=== PATIENT | male | born 1930 | race Caucasian/White ===

== ENCOUNTER 2018-03-21 20:20 | Inpatient (IN) | payer MEDICARE, MEDICAID ==
[~2018-03-21] VITALS: Ht 170.2 cm; Wt 60.0 kg
--- NOTE | 2018-03-21 21:43 | Emergency Room Report ---
History of Present Illness General Chief Complaint: Abnormal Labs Source: Medical Record, EMS Present Illness HPI Is an 87-year-old male with multiple medical problem. He is a DO NOT RESUSCITATE with selected care. He presents with chief complaint of fever and abnormal labs. White count was 22,000 at the long-term. Patient unable to give any history. Onset for last couple days. No nausea no vomiting. He does have some respiratory distress. No other complaint. Allergies: Coded Allergies: ASPIRIN (Verified Allergy, Unknown, 03/21/18) Patient History Past Medical History: see triage record, old chart reviewed Past Surgical History: other Pertinent Family History: none Social History: Denies: smoking Immunizations: other Reviewed Nursing Documentation: PMH: Agreed; PSxH: Agreed Nursing Documentation-PMH Past Medical History: No History, Except For Hx Cardiac Problems: Yes - afib Hx Hypertension: Yes Hx Diabetes: Yes - dm2 Hx Gastrointestinal Problems: Yes - gtube Review of Systems Constitutional: Reports: fever, malaise, weakness Eye: Denies: eye pain, blurred vision ENT: Denies: ear pain, nose congestion, throat swelling Respiratory: Reports: shortness of breath; Denies: cough Cardiovascular: Denies: chest pain, palpitations Gastrointestinal: Denies: abdominal pain, diarrhea, nausea, vomiting Musculoskeletal: Denies: back pain, joint pain Skin: Denies: rash Neurological: Denies: headache, numbness Endocrine: Denies: increased thirst, increased urine Hematologic/Lymphatic: Denies: easy bruising All Other Systems: negative except mentioned in HPI Physical Exam Vital Signs Date Time Temp Pulse Resp B/P (MAP) Pulse Ox O2 Delivery O2 Flow Rate FiO2 03/21/18 20:23 99.7 92 16 87/39 93 Nasal Cannula 2.0 99.7 vitals with fever, hypoxia, and hypotension Sp02 EP Interpretation: abnormal General Appearance: mild distress, lethargic, thin, Chronically Ill Head: normocephalic, atraumatic Eyes: bilateral eye PERRL, bilateral eye EOMI ENT: dry mucus membranes Neck: full range of motion, supple, no meningismus Respiratory: chest non-tender, respiratory distress, decreased breath sounds, crackles, rhonchi Cardiovascular #1: regular rate, rhythm, no murmur Gastrointestinal: normal bowel sounds, non tender, no mass, no organomegaly, no bruit, non-distended Genitourinary: other - Perez Musculoskeletal: back normal, normal range of motion Psychiatric: mood/affect normal Skin: warm/dry Procedures Critical Care Time Critical Care Time Critical care is mandated in this patient who presented with sepsis from pneumonia. Patient require my urgent intervention to attenuate the risks of metabolic collapse which may lead to cardiovascular collapse and . Critical care time is 35 minutes excluding any reportable procedure. Critical care time included evaluation, multiple reevaluation, looking at old charts, interpreting laboratory and diagnostic data, discussing case with patient and family and consultants, and charting. Medical Decision Making Diagnostic Impression: Primary Impression: Sepsis Qualified Codes: A41.9 - Sepsis, unspecified organism Additional Impressions: Healthcare-associated pneumonia ACS (acute coronary syndrome) ARF (acute renal failure) Qualified Codes: N17.9 - Acute kidney failure, unspecified Anemia Qualified Codes: D64.9 - Anemia, unspecified UTI (urinary tract infection) Qualified Codes: N30.00 - Acute cystitis without hematuria Proteinuria Qualified Codes: R80.9 - Proteinuria, unspecified ER Course Patient with sepsis from pneumonia. Antibiotics given. I will add vancomycin to cover for the PICC line. I discussed the case with Dr. Anthony who will admit. Lab Results Impression labs showed multiple abnormalities EKG Diagnostic Results Rate: normal Rhythm: NSR ST Segments: no acute changes Rhythm Strip Diag. Results Rhythm Strip Time: 21:41 EP Interpretation: yes Rate: 87 Rhythm: NSR, no PVC's, no ectopy Chest X-Ray Diagnostic Results Chest X-Ray Diagnostic Results : Chest X-Ray Ordered: Yes # of Views/Limited/Complete: 1 View Indication: Shortness of Breath EP Interpretation: Yes Interpretation: no effusion, no pneumothorax, other - b/l lower lobe interstitial infiltrates. Impression: Other Electronically Signed by: b/l infiltrates Last Vital Signs Date Time Temp Pulse Resp B/P (MAP) Pulse Ox O2 Delivery O2 Flow Rate FiO2 03/21/18 20:23 99.7 92 16 87/39 93 Nasal Cannula 2.0 99.7 Status: improved Disposition: ADMITTED INPATIENT Condition: Serious HATTIE RUFF M.D. Mar 21, 2018 21:43
[2018-03-21 21:44] LABS: HEMATOCRIT 27.5 % (42.0-52.0); HEMOGLOBIN 8.9 G/DL (14.2-18.0); MEAN CORPUSCULAR VOLUME 99 FL (80-99); PLATELET COUNT 151 K/UL (150-450); RED BLOOD COUNT 2.79 M/UL (4.70-6.10); RED CELL DISTRIBUTION WIDTH 18.7 % (11.6-14.8)
[2018-03-21] MEDS ORDERED: Vancomycin 1 GM in NS 275 ML IVPB ONE (21:45)
[2018-03-21] MEDS ORDERED: Piperacillin/Tazobactam 3.375 GM in NS 110 ML IVPB ONE (21:45)
[2018-03-21 21:47] LABS: WHITE BLOOD COUNT 25.6 K/UL (4.8-10.8)
[2018-03-21 21:52] LABS: APPEARANCE,URINE VERY CLOUDY; BILIRUBIN, URINE 2+ (NEGATIVE); GLUCOSE, URINE (UA) NEGATIVE (NEGATIVE); KETONES,URINE NEGATIVE (NEGATIVE); LEUKOCYTE ESTERASE ,URINE 2+ (NEGATIVE); NITRITE,URINE NEGATIVE (NEGATIVE); PH,URINE 5 (4.5-8.0); PROTEIN,URINE 3+ (NEGATIVE); UROBILINOGEN,URINE 1 MG/DL (0.0-1.0)
[2018-03-21 21:54] LABS: ANION GAP 13 mmol/L (5-15); BLOOD UREA NITROGEN 115 mg/dL (7-18); CALCIUM 8.6 MG/DL (8.5-10.1); CARBON DIOXIDE 24 MMOL/L (21-32); CHLORIDE 111 MMOL/L (98-107); CREATININE 2.4 MG/DL (0.55-1.30); SODIUM 148 MMOL/L (136-145)
[2018-03-21 21:55] LABS: INR 1.5 (0.9-1.1)
[2018-03-21 21:55] LABS: COLOR,URINE YELLOW
[2018-03-21 22:10] LABS: ALANINE AMINOTRANSFERASE 46 U/L (12-78); ALBUMIN 2.2 G/DL (3.4-5.0); ALBUMIN/GLOBULIN RATIO 0.5 (1.0-2.7); ALKALINE PHOSPHATASE 65 U/L (46-116); ASPARTATE AMINO TRANSFERASE 70 U/L (15-37); BILIRUBIN,TOTAL 0.4 MG/DL (0.2-1.0); CKMB 3.7 NG/ML (0.0-3.6); CREATINE KINASE 1631 U/L (26-308)
[2018-03-21] MEDS ORDERED: Enoxaparin 60mg Inj SUBQ ONE (23:15)
[2018-03-22] VITALS: BP 103/43
[2018-03-22] MEDS ORDERED: COLACE100 MG/10 GT (01:36)
[2018-03-22] MEDS ORDERED: NEURONTIN300 MG ORAL (01:36)
[2018-03-22] MEDS ORDERED: HYDRALAZIN20 MG/1 ML IJ (01:36)
[2018-03-22] MEDS ORDERED: METOPROLOL5 MG/5 M1 IV (01:36)
[2018-03-22] MEDS ORDERED: PANTOPRAZOLE SO20 MG ORAL (01:36)
[2018-03-22] MEDS ORDERED: HUMALOG 75/255 UNITS SUBQ (01:36)
[2018-03-22] MEDS ORDERED: FERROUS SULFAT500 G1 MC (01:36)
[2018-03-22 04:00] VITALS: BP 100/59
[2018-03-22] MEDS ORDERED: Piperacillin/Tazobactam 2.25 GM in D5W 55 ML IVPB SCH (06:00)
[2018-03-22 07:56] LABS: HEMATOCRIT 24.7 % (42.0-52.0); MEAN CORPUSCULAR VOLUME 100 FL (80-99); PLATELET COUNT 140 K/UL (150-450); RED BLOOD COUNT 2.47 M/UL (4.70-6.10); RED CELL DISTRIBUTION WIDTH 19.3 % (11.6-14.8)
[2018-03-22 08:00] VITALS: BP 151/57
[2018-03-22 08:12] LABS: WHITE BLOOD COUNT 23.7 K/UL (4.8-10.8)
[2018-03-22 08:25] LABS: ANION GAP 13 mmol/L (5-15); BLOOD UREA NITROGEN 114 mg/dL (7-18); CALCIUM 8.3 MG/DL (8.5-10.1); CARBON DIOXIDE 23 MMOL/L (21-32); CHLORIDE 115 MMOL/L (98-107); CREATININE 2.1 MG/DL (0.55-1.30); POTASSIUM 3.6 MMOL/L (3.5-5.1); SODIUM 151 MMOL/L (136-145)
[2018-03-22] MEDS: Zosyn 3.375gm q12h **Extended infusion IVPB SCH ×4 (08:54→20:54)
[2018-03-22] MEDS: Heparin 5000 units/ml inj SUBQ SCH ×2 (09:01→20:56)
[2018-03-22 12:00] VITALS: BP 138/58
[2018-03-22] MEDS: Acetaminophen 650mg/20.3ml GT PRN ×3 (12:10→20:54)
--- NOTE | 2018-03-22 15:06 | Infectious Diseases Prog Note ---
Assessment/Plan Assessment/Plan Full consult dictated: A) 1) sepsis, leukocytosis, fevers 2) pmh noted 3) allergies P) 1) vancomycin and zosyn, levofloxacin 2) check cultures, labs and chest x-ray 3) thank you Subjective Allergies: Coded Allergies: ASPIRIN (Verified Allergy, Unknown, 03/21/18) Objective Vital Signs Last 24 Hour Vital Signs Date Time Temp Pulse Resp B/P (MAP) Pulse Ox O2 Delivery O2 Flow Rate FiO2 03/22/18 13:34 98.6 98.6 03/22/18 12:40 98.6 03/22/18 12:10 100.2 03/22/18 12:00 100.2 110 30 138/58 (84) 94 100.2 03/22/18 08:00 99.7 110 22 151/57 (88) 95 99.7 03/22/18 08:00 Nasal Cannula 2.0 03/22/18 08:00 104 03/22/18 04:30 Room Air 03/22/18 04:00 96.7 76 22 100/59 (73) 95 96.7 03/22/18 04:00 92 03/22/18 01:38 99.7 89 16 103/43 93 Nasal Cannula 2.0 99.7 03/22/18 01:13 90 03/22/18 00:00 99.7 89 16 103/43 93 Nasal Cannula 2.0 99.7 03/21/18 20:23 99.7 92 16 87/39 93 Nasal Cannula 2.0 99.7 Height (Feet): 5 Height (Inches): 7.00 Weight (Pounds): 121 Microbiology Date/Time Source Procedure Growth Status 03/21/18 21:35 Urine,Clean Catch Urine Culture - Preliminary Gram Negative Bacillus 1 Resulted Laboratory Tests Test 03/21/18 21:27 03/21/18 21:35 03/21/18 23:44 03/22/18 06:00 White Blood Count 25.6 K/UL (4.8-10.8) *H 23.7 K/UL (4.8-10.8) *H Red Blood Count 2.79 M/UL (4.70-6.10) L 2.47 M/UL (4.70-6.10) L Hemoglobin 8.9 G/DL (14.2-18.0) L 8.0 G/DL (14.2-18.0) L Hematocrit 27.5 % (42.0-52.0) L 24.7 % (42.0-52.0) L Mean Corpuscular Volume 99 FL (80-99) 100 FL (80-99) H Mean Corpuscular Hemoglobin 32.0 PG (27.0-31.0) H 32.5 PG (27.0-31.0) H Mean Corpuscular Hemoglobin Concent 32.4 G/DL (32.0-36.0) 32.5 G/DL (32.0-36.0) Red Cell Distribution Width 18.7 % (11.6-14.8) H 19.3 % (11.6-14.8) H Platelet Count 151 K/UL (150-450) 140 K/UL (150-450) L Mean Platelet Volume 9.9 FL (6.5-10.1) 9.6 FL (6.5-10.1) Neutrophils (%) (Auto) % (45.0-75.0) % (45.0-75.0) Lymphocytes (%) (Auto) % (20.0-45.0) % (20.0-45.0) Monocytes (%) (Auto) % (1.0-10.0) % (1.0-10.0) Eosinophils (%) (Auto) % (0.0-3.0) % (0.0-3.0) Basophils (%) (Auto) % (0.0-2.0) % (0.0-2.0) Differential Total Cells Counted 100 100 Neutrophils % (Manual) 75 % (45-75) 93 % (45-75) H Lymphocytes % (Manual) 10 % (20-45) L 1 % (20-45) L Monocytes % (Manual) 7 % (1-10) 3 % (1-10) Eosinophils % (Manual) 1 % (0-3) 0 % (0-3) Basophils % (Manual) 2 % (0-2) 0 % (0-2) Band Neutrophils 5 % (0-8) 3 % (0-8) Platelet Estimate Decreased L Decreased L Platelet Morphology Normal Normal Polychromasia 1+ Anisocytosis 1+ 2+ Macrocytosis 2+ Prothrombin Time 15.1 SEC (9.30-11.50) H Prothromb Time International Ratio 1.5 (0.9-1.1) H Activated Partial Thromboplast Time 33 SEC (23-33) Sodium Level 148 MMOL/L (136-145) H 151 MMOL/L (136-145) H Potassium Level 4.0 MMOL/L (3.5-5.1) 3.6 MMOL/L (3.5-5.1) Chloride Level 111 MMOL/L (98-107) H 115 MMOL/L (98-107) H Carbon Dioxide Level 24 MMOL/L (21-32) 23 MMOL/L (21-32) Anion Gap 13 mmol/L (5-15) 13 mmol/L (5-15) Blood Urea Nitrogen 115 mg/dL (7-18) H 114 mg/dL (7-18) H Creatinine 2.4 MG/DL (0.55-1.30) H 2.1 MG/DL (0.55-1.30) H Estimat Glomerular Filtration Rate mL/min (>60) mL/min (>60) Glucose Level 205 MG/DL (74-106) H 130 MG/DL (74-106) H Lactic Acid Level 2.90 mmol/L (0.4-2.0) H 2.50 mmol/L (0.66-2.22) H Calcium Level 8.6 MG/DL (8.5-10.1) 8.3 MG/DL (8.5-10.1) L Total Bilirubin 0.4 MG/DL (0.2-1.0) Aspartate Amino Transf (AST/SGOT) 70 U/L (15-37) H Alanine Aminotransferase (ALT/SGPT) 46 U/L (12-78) Alkaline Phosphatase 65 U/L (46-116) Total Creatine Kinase 1631 U/L (26-308) H Creatine Kinase MB 3.7 NG/ML (0.0-3.6) H Creatine Kinase MB Relative Index 0.2 Troponin I 1.056 ng/mL (0.000-0.056) Total Protein 6.9 G/DL (6.4-8.2) Albumin 2.2 G/DL (3.4-5.0) L Globulin 4.7 g/dL Albumin/Globulin Ratio 0.5 (1.0-2.7) L Urine Color Yellow Urine Appearance Very cloudy Urine pH 5 (4.5-8.0) Urine Specific [place] 1.015 (1.005-1.035) Urine Protein 3+ (NEGATIVE) H Urine Glucose (UA) Negative (NEGATIVE) Urine Ketones Negative (NEGATIVE) Urine Occult Blood 5+ (NEGATIVE) H Urine Nitrite Negative (NEGATIVE) Urine Bilirubin 2+ (NEGATIVE) H Urine Ictotest Negative Urine Urobilinogen 1 MG/DL (0.0-1.0) H Urine Leukocyte Esterase 2+ (NEGATIVE) H Urine RBC 2-4 /HPF (0 - 0) H Urine WBC 2-4 /HPF (0 - 0) Urine Squamous Epithelial Cells Few /LPF (NONE/OCC) Urine Calcium Oxalate Crystals Few /LPF (NONE) Urine Amorphous Sediment Many /LPF (NONE) H Urine Bacteria Many /HPF (NONE) H Urine Yeast Many /HPF (NONE) H Hypochromasia 1+ Cale Cells 1+ Schistocytes 1+ Current Medications Medications (Trade) Dose Ordered Sig/Mani Route PRN Reason Start Time Stop Time Status Last Admin Dose Admin Acetaminophen (Tylenol) 650 mg Q4H PRN GT Mild Pain/Temp > 100.5 03/22/18 12:05 04/21/18 12:04 03/22/18 12:10 Chlorhexidine Gluconate (Elizabeth-Hex 2%) 1 applic DAILY@2000 TOPIC 03/22/18 20:00 04/21/18 19:59 Epoetin Dat (Procrit (for non ESRD use)) 5,000 units SUN-SUN-SUN SUBQ 03/22/18 21:00 04/21/18 20:59 Heparin Sodium (Porcine) (Heparin 5000 units/ml) 5,000 units EVERY 12 HOURS SUBQ 03/22/18 09:00 04/21/18 08:59 03/22/18 09:01 Piperacillin Sod/ Tazobactam Sod 3.375 gm/Sodium Chloride 110 ml @ 27.5 mls/hr EVERY 12 HOURS IVPB 03/22/18 09:00 03/27/18 08:59 03/22/18 08:54 Sodium Chloride 1,000 ml @ 50 mls/hr Q20H IV 03/22/18 12:00 04/21/18 11:59 7/13/18 12:10 Vancomycin HCl (Vanco rx to dose) 1 ea DAILY PRN MISC Per rx protocol 03/22/18 04:15 04/21/18 04:14 Arleth Aranda MD Mar 22, 2018 15:06
--- NOTE | 2018-03-22 15:28 | Diagnostic Imaging Report ---
Indication: Chest pain, shortness of breath Technique: XRAY Chest 1v Comparison: None Findings: Heart size appears within normal limits. There are patchy bibasilar airspace opacities. Slight haziness the pulmonary vascularity. There is a small right pleural effusion. No pneumothorax. Degenerative changes noted in the spine. No acute osseous abnormality appreciated. Impression: Bilateral lower lung opacities and small right pleural effusion. Consider pneumonia, with possible superimposed mild CHF. Clinical correlation/follow-up recommended. This corresponds with the preliminary interpretation of the treating ER clinician, as documented in the electronic medical record. Study obtained via the emergency department however patient admitted to the hospital at time of dictation of the final report.
[2018-03-22 16:00] VITALS: BP 119/42
--- NOTE | 2018-03-22 17:46 | History and Physical Report ---
DATE OF ADMISSION: 03/21/2018 CHIEF COMPLAINT: Abnormal laboratory results. HISTORY OF PRESENT ILLNESS: This is an 87-year-old male from a [facility] that I got from other physicians. The patient was admitted from other hospitals with septic complications mainly aspiration pneumonia and was transferred to that [facility]. The patient declined significantly and the family expressed dissatisfaction and transferred the care to [place]. The [facility] called me about abnormal white count of 23,000 and for this, the patient was transferred to this hospital. The patient was made DNR and is admitted to telemetry with suspected pneumonia. 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 PAST MEDICAL HISTORY: Gleaned from medical records. Last admissions m/p [facility] 1. Organic brain syndrome. 2. Dysphagia. 3. Status post G-tube. 4. Recurrent septicemia. 5. Type 2 diabetes mellitus. 6. History of stage II sacral decubitus ulcer. Obtain Medical records. PENITENTIARY MEDICATIONS: Sodium docusate, tube feeding, iron, Neurontin, hydralazine, insulin sliding scale, metoprolol, and Protonix. ALLERGIES: Reported to aspirin. FAMILY HISTORY: Unable to obtain. SOCIAL HISTORY: Unable to obtain. REVIEW OF SYSTEMS: Unable to obtain. PHYSICAL EXAMINATION: GENERAL: This is an elderly male, who is in dyspnea. VITAL SIGNS: Blood pressure 100/59, pulse 92, respirations 22 and labored, and temperature is 96.7 axillary. HEENT: The head is normocephalic and atraumatic. Pupils are equal, round, and reactive to light and accommodation consensually. NECK: Supple. Trachea midline. There was no lymphadenopathy or thyromegaly. LUNGS: Bilateral rhonchi and wheezes. HEART: Regular rate and rhythm without rubs, murmurs, or gallops. ABDOMEN: Soft and nontender. Bowel sounds were active. He has a G-tube. SKIN: He has stage II sacral decubitus ulcer. EXTREMITIES: No clubbing or cyanosis. He has 2+ peripheral edema. NEUROLOGICAL: He is confused. There were no gross focal findings. LABORATORY AND ANCILLARY DATA: CBC on admission 25,600, today 23,700 and hematocrit today 24.7. Chemistry today pending. On admission, sodium 148, potassium 4, BUN 150, and creatinine 2.4. Lactic acid today is pending, yesterday 2.5, earlier 2.9. Total CPK 1621. Urinalysis, urine sediment unremarkable, but the urine itself is very cloudy, many bacteria, many yeasts. IMAGING REPORTS: Currently, not reported. According to the ER report showing no effusion and no pneumothorax. Bilateral lower lobe interstitial infiltrates. ASSESSMENT: 1. Septicemia with multiple possible sources, currently most likely bilateral lower lobe pneumonia. 2. Organic brain syndrome. 3. Dysphagia. 4. Status post G-tube. 5. Recurrent septicemia. 6. Type 2 diabetes mellitus. 7. History of stage II sacral decubitus ulcer. 8. CHF - Systolic? PLAN: 1. Broad-spectrum intravenous antibiotics. 2. IV fluid low-grade hydration. 3. Oxygen therapy. 4. Pulmonary and Infectious Disease consult. 5. Wound consult. 6. Obtain Medical records. 7. Cardiology Consult. 8. 2D Echo. Annette Lee M.D. DR: ALLYN JOB#: [id number] CC: REBECCA
[2018-03-22 20:00] VITALS: BP 117/48
[2018-03-22] MEDS: Epogen (for non ESRD use) SUBQ SCH (20:53)
[2018-03-22] MEDS: Dyna-Hex 2% Top Sol 2oz TOPIC SCH (20:53)
[2018-03-23] VITALS: BP 118/56
[2018-03-23 04:00] VITALS: BP 148/57
[2018-03-23 04:41] LABS: HEMATOCRIT 26.7 % (42.0-52.0); HEMOGLOBIN 8.4 G/DL (14.2-18.0); MEAN CORPUSCULAR VOLUME 102 FL (80-99); PLATELET COUNT 145 K/UL (150-450); RED BLOOD COUNT 2.62 M/UL (4.70-6.10); RED CELL DISTRIBUTION WIDTH 19.6 % (11.6-14.8); WHITE BLOOD COUNT 15.8 K/UL (4.8-10.8)
[2018-03-23 05:04] LABS: BLOOD UREA NITROGEN 112 mg/dL (7-18); CALCIUM 8.8 MG/DL (8.5-10.1); CHLORIDE 119 MMOL/L (98-107); CREATININE 2.1 MG/DL (0.55-1.30); POTASSIUM 3.3 MMOL/L (3.5-5.1); SODIUM 154 MMOL/L (136-145)
[2018-03-23 05:26] LABS: CARBON DIOXIDE 21 MMOL/L (21-32)
[2018-03-23] MEDS ORDERED: Vancomycin 750mg/NS 250ml IVPB SCH (07:00)
[2018-03-23 08:00] VITALS: BP 147/54
[2018-03-23] MEDS: Zosyn 3.375gm q12h **Extended infusion IVPB SCH ×2 (08:09)
[2018-03-23] MEDS: Heparin 5000 units/ml inj SUBQ SCH ×2 (08:10→21:00)
--- NOTE | 2018-03-23 08:43 | General Progress Note ---
Assessment/Plan Assessment/Plan Pneumonia _ IV Abx CHF + Rapid A,. Fib _ dig, Car Consult, 2 D Echo. Needs to be diursed. Subjective Allergies: Coded Allergies: ASPIRIN (Verified Allergy, Unknown, 03/21/18) Subjective More dyspneic. Objective Last 24 Hour Vital Signs Date Time Temp Pulse Resp B/P (MAP) Pulse Ox O2 Delivery O2 Flow Rate FiO2 03/23/18 08:00 98.6 107 49 147/54 (85) 96 98.6 03/23/18 04:00 98.9 87 30 148/57 (87) 94 98.9 03/23/18 04:00 114 03/23/18 00:00 109 03/23/18 00:00 98.3 100 22 118/56 (76) 95 98.3 03/22/18 21:24 98.1 03/22/18 21:00 Nasal Cannula 2.0 03/22/18 20:54 99.3 03/22/18 20:00 99.3 115 26 117/48 (71) 95 99.3 03/22/18 20:00 104 03/22/18 17:18 100.5 03/22/18 16:00 97.9 118 31 119/42 (67) 94 97.9 03/22/18 16:00 114 03/22/18 13:34 98.6 98.6 03/22/18 12:10 100.2 03/22/18 12:00 110 03/22/18 12:00 100.2 110 30 138/58 (84) 94 100.2 Intake and Output 03/22/18 03/23/18 19:00 07:00 Intake Total 625.0 ml 1100.00 ml Output Total 500 ml Balance 625.0 ml 600.00 ml Free Water 80 ml 150 ml IV Total 410.0 ml 710.00 ml Tube Feeding 135 ml 240 ml Output Urine Total 500 ml Laboratory Tests 03/23/18 04:00: White Blood Count 15.8H, Red Blood Count 2.62L, Hemoglobin 8.4L, Hematocrit 26.7L, Mean Corpuscular Volume 102H, Mean Corpuscular Hemoglobin 32.0H, Mean Corpuscular Hemoglobin Concent 31.5L, Red Cell Distribution Width 19.6H, Platelet Count 145L, Mean Platelet Volume 10.7H, Neutrophils (%) (Auto) , Lymphocytes (%) (Auto) , Monocytes (%) (Auto) , Eosinophils (%) (Auto) , Basophils (%) (Auto) , Differential Total Cells Counted 100, Neutrophils % ( Manual) 77H, Lymphocytes % (Manual) 2L, Monocytes % (Manual) 8, Eosinophils % ( Manual) 0, Basophils % (Manual) 1, Band Neutrophils 12H, Platelet Estimate DecreasedL, Platelet Morphology Normal, Anisocytosis 2+, Macrocytosis 2+, Sodium Level 154H, Potassium Level 3.3L, Chloride Level 119H, Carbon Dioxide Level 21, Blood Urea Nitrogen 112H, Creatinine 2.1H, Estimat Glomerular Filtration Rate , Glucose Level 225H, Calcium Level 8.8, Phosphorus Level 5.0H, Magnesium Level 3.0H, Random Vancomycin Level 7.3 Height (Feet): 5 Height (Inches): 7.00 Weight (Pounds): 121 Objective Rapid A. Fib `130 Cv IRR/IRR Lungs B Crackles, Ronchi Abd SNT. BS + E No CCE Annette Lee MD Mar 23, 2018 08:42
[2018-03-23] MEDS ORDERED: Digoxin 0.5mg/2ml Inj IVP SCH (08:45)
--- NOTE | 2018-03-23 08:57 | Diagnostic Imaging Report ---
EXAM: XR Chest, 1 View CLINICAL HISTORY: INFECT TECHNIQUE: Frontal view of the chest. COMPARISON: Chest x-ray 03/21/182110 FINDINGS: Lungs: Hypoventilatory lungs. Bibasilar lung atelectasis. Slightly worsening vascular congestion and interstitial airspace opacity. Pleural space: New small left pleural effusion. No pneumothorax. Heart: Unremarkable. No cardiomegaly. Mediastinum: Unremarkable. Bones/joints: Unremarkable. IMPRESSION: Slightly worsening vascular congestion and interstitial prominence and new small left pleural effusion may be worsening CHF and/or infection.
--- NOTE | 2018-03-23 09:44 | Diagnostic Imaging Report ---
EXAM: XR Chest, 1 View CLINICAL HISTORY: SOB TECHNIQUE: Frontal view of the chest. COMPARISON: Chest x-ray 03/21/18 and 03/23/18 at 750 FINDINGS: Lungs: Bilateral interstitial prominence, similar to prior study. Low lung volumes. Pleural space: Similar small left pleural effusion. No pneumothorax. Heart: Unremarkable. No cardiomegaly. Mediastinum: Unremarkable. Bones/joints: Unremarkable. IMPRESSION: Stable appearance of bilateral interstitial airspace opacities and small left pleural effusion.
[2018-03-23] MEDS: Potassium Chloride 10 MEQ in D5W 1000ml 1,000 ML IV SCH (10:42)
--- NOTE | 2018-03-23 11:16 | Cardiology Progress Note ---
Assessment/Plan Assessment/Plan seen for dr puentes nstemi type 2 demand related poor candidate for anything other than conservative care ecotrin and statin bb if tachy now sinus will follow echo normal lv function on prelin report [id number] Objective Last 24 Hour Vital Signs Date Time Temp Pulse Resp B/P (MAP) Pulse Ox O2 Delivery O2 Flow Rate FiO2 03/23/18 09:17 107 03/23/18 09:00 Nasal Cannula 2.0 03/23/18 08:00 98.6 107 49 147/54 (85) 96 98.6 03/23/18 08:00 117 03/23/18 04:00 98.9 87 30 148/57 (87) 94 98.9 03/23/18 04:00 114 03/23/18 00:00 109 03/23/18 00:00 98.3 100 22 118/56 (76) 95 98.3 03/22/18 21:24 98.1 03/22/18 21:00 Nasal Cannula 2.0 03/22/18 20:54 99.3 03/22/18 20:00 99.3 115 26 117/48 (71) 95 99.3 03/22/18 20:00 104 03/22/18 17:18 100.5 03/22/18 16:00 97.9 118 31 119/42 (67) 94 97.9 03/22/18 16:00 114 03/22/18 13:34 98.6 98.6 03/22/18 12:10 100.2 03/22/18 12:00 110 03/22/18 12:00 100.2 110 30 138/58 (84) 94 100.2 Intake and Output 03/22/18 03/23/18 19:00 07:00 Intake Total 625.0 ml 1100.00 ml Output Total 500 ml Balance 625.0 ml 600.00 ml Free Water 80 ml 150 ml IV Total 410.0 ml 710.00 ml Tube Feeding 135 ml 240 ml Output Urine Total 500 ml Laboratory Tests Test 03/23/18 04:00 03/23/18 08:41 White Blood Count 15.8 K/UL (4.8-10.8) H Red Blood Count 2.62 M/UL (4.70-6.10) L Hemoglobin 8.4 G/DL (14.2-18.0) L Hematocrit 26.7 % (42.0-52.0) L Mean Corpuscular Volume 102 FL (80-99) H Mean Corpuscular Hemoglobin 32.0 PG (27.0-31.0) H Mean Corpuscular Hemoglobin Concent 31.5 G/DL (32.0-36.0) L Red Cell Distribution Width 19.6 % (11.6-14.8) H Platelet Count 145 K/UL (150-450) L Mean Platelet Volume 10.7 FL (6.5-10.1) H Neutrophils (%) (Auto) % (45.0-75.0) Lymphocytes (%) (Auto) % (20.0-45.0) Monocytes (%) (Auto) % (1.0-10.0) Eosinophils (%) (Auto) % (0.0-3.0) Basophils (%) (Auto) % (0.0-2.0) Differential Total Cells Counted 100 Neutrophils % (Manual) 77 % (45-75) H Lymphocytes % (Manual) 2 % (20-45) L Monocytes % (Manual) 8 % (1-10) Eosinophils % (Manual) 0 % (0-3) Basophils % (Manual) 1 % (0-2) Band Neutrophils 12 % (0-8) H Platelet Estimate Decreased L Platelet Morphology Normal Anisocytosis 2+ Macrocytosis 2+ Sodium Level 154 MMOL/L (136-145) H Potassium Level 3.3 MMOL/L (3.5-5.1) L Chloride Level 119 MMOL/L (98-107) H Carbon Dioxide Level 21 MMOL/L (21-32) Blood Urea Nitrogen 112 mg/dL (7-18) H Creatinine 2.1 MG/DL (0.55-1.30) H Estimat Glomerular Filtration Rate mL/min (>60) Glucose Level 225 MG/DL (74-106) H Calcium Level 8.8 MG/DL (8.5-10.1) Phosphorus Level 5.0 MG/DL (2.5-4.9) H Magnesium Level 3.0 MG/DL (1.8-2.4) H Troponin I 0.449 ng/mL (0.000-0.056) Random Vancomycin Level 7.3 ug/mL Arterial Blood pH 7.497 (7.350-7.450) Arterial Blood Partial Pressure CO2 23.6 mmHg (35.0-45.0) *L Arterial Blood Partial Pressure O2 74.8 mmHg (75.0-100.0) L Arterial Blood HCO3 17.9 mmol/L (22.0-26.0) L Arterial Blood Oxygen Saturation 94.1 % (92.0-98.0) Arterial Blood Base Excess -4.3 Nabeel Test Positive Microbiology Date/Time Source Procedure Growth Status 03/21/18 21:27 Blood Blood Culture - Preliminary NO GROWTH AFTER 24 HOURS Resulted 03/21/18 21:17 Blood Blood Culture - Preliminary NO GROWTH AFTER 24 HOURS Resulted 03/21/18 21:35 Urine,Clean Catch Urine Culture - Final Enterobacter Cloacae Complex Complete Terence Kaur MD Mar 23, 2018 11:16
[2018-03-23 12:00] VITALS: BP 131/60
[2018-03-23] MEDS: Acetaminophen 650mg/20.3ml GT PRN (15:53)
[2018-03-23 16:00] VITALS: BP 132/68
--- NOTE | 2018-03-23 16:17 | Infectious Diseases Prog Note ---
Assessment/Plan Assessment/Plan Full consult dictated: A) 1) enterobacter uti/pyelonephritis, sepsis, leukocytosis, fevers, ? pna 2) pmh noted 3) allergies - asa P) 1) vancomycin and meropenem, levofloxacin 2) check cultures, labs and chest x-ray 3) thank you Subjective Constitutional: Reports: fever HEENT: Reports: congestion Respiratory: Reports: shortness of breath Genitourinary: Reports: other - + mishra Allergies: Coded Allergies: ASPIRIN (Verified Allergy, Unknown, 03/21/18) Objective Vital Signs Last 24 Hour Vital Signs Date Time Temp Pulse Resp B/P (MAP) Pulse Ox O2 Delivery O2 Flow Rate FiO2 03/23/18 15:53 100.6 03/23/18 12:00 114 03/23/18 12:00 99.3 115 44 131/60 (83) 96 99.3 03/23/18 09:17 107 03/23/18 09:00 Nasal Cannula 2.0 03/23/18 08:00 98.6 107 49 147/54 (85) 96 98.6 03/23/18 08:00 117 03/23/18 04:00 98.9 87 30 148/57 (87) 94 98.9 03/23/18 04:00 114 03/23/18 00:00 109 03/23/18 00:00 98.3 100 22 118/56 (76) 95 98.3 03/22/18 21:24 98.1 03/22/18 21:00 Nasal Cannula 2.0 03/22/18 20:54 99.3 03/22/18 20:00 99.3 115 26 117/48 (71) 95 99.3 03/22/18 20:00 104 03/22/18 17:18 100.5 Height (Feet): 5 Height (Inches): 7.00 Weight (Pounds): 121 General Appearance: other - sob HEENT: normocephalic, atraumatic, anicteric Respiratory/Chest: crackles/rales, rhonchi - bilaterally Cardiovascular: normal rate, regular rhythm Abdomen: normal bowel sounds, soft, non tender, no organomegaly, non distended Microbiology Date/Time Source Procedure Growth Status 03/21/18 21:27 Blood Blood Culture - Preliminary NO GROWTH AFTER 24 HOURS Resulted 03/21/18 21:17 Blood Blood Culture - Preliminary NO GROWTH AFTER 24 HOURS Resulted 03/21/18 21:35 Urine,Clean Catch Urine Culture - Final Enterobacter Cloacae Complex Complete Laboratory Tests Test 03/23/18 04:00 03/23/18 08:41 White Blood Count 15.8 K/UL (4.8-10.8) H Red Blood Count 2.62 M/UL (4.70-6.10) L Hemoglobin 8.4 G/DL (14.2-18.0) L Hematocrit 26.7 % (42.0-52.0) L Mean Corpuscular Volume 102 FL (80-99) H Mean Corpuscular Hemoglobin 32.0 PG (27.0-31.0) H Mean Corpuscular Hemoglobin Concent 31.5 G/DL (32.0-36.0) L Red Cell Distribution Width 19.6 % (11.6-14.8) H Platelet Count 145 K/UL (150-450) L Mean Platelet Volume 10.7 FL (6.5-10.1) H Neutrophils (%) (Auto) % (45.0-75.0) Lymphocytes (%) (Auto) % (20.0-45.0) Monocytes (%) (Auto) % (1.0-10.0) Eosinophils (%) (Auto) % (0.0-3.0) Basophils (%) (Auto) % (0.0-2.0) Differential Total Cells Counted 100 Neutrophils % (Manual) 77 % (45-75) H Lymphocytes % (Manual) 2 % (20-45) L Monocytes % (Manual) 8 % (1-10) Eosinophils % (Manual) 0 % (0-3) Basophils % (Manual) 1 % (0-2) Band Neutrophils 12 % (0-8) H Platelet Estimate Decreased L Platelet Morphology Normal Anisocytosis 2+ Macrocytosis 2+ Sodium Level 154 MMOL/L (136-145) H Potassium Level 3.3 MMOL/L (3.5-5.1) L Chloride Level 119 MMOL/L (98-107) H Carbon Dioxide Level 21 MMOL/L (21-32) Blood Urea Nitrogen 112 mg/dL (7-18) H Creatinine 2.1 MG/DL (0.55-1.30) H Estimat Glomerular Filtration Rate mL/min (>60) Glucose Level 225 MG/DL (74-106) H Calcium Level 8.8 MG/DL (8.5-10.1) Phosphorus Level 5.0 MG/DL (2.5-4.9) H Magnesium Level 3.0 MG/DL (1.8-2.4) H Troponin I 0.449 ng/mL (0.000-0.056) Random Vancomycin Level 7.3 ug/mL Arterial Blood pH 7.497 (7.350-7.450) Arterial Blood Partial Pressure CO2 23.6 mmHg (35.0-45.0) *L Arterial Blood Partial Pressure O2 74.8 mmHg (75.0-100.0) L Arterial Blood HCO3 17.9 mmol/L (22.0-26.0) L Arterial Blood Oxygen Saturation 94.1 % (92.0-98.0) Arterial Blood Base Excess -4.3 Nabeel Test Positive Current Medications Medications (Trade) Dose Ordered Sig/Mani Route PRN Reason Start Time Stop Time Status Last Admin Dose Admin Acetaminophen (Tylenol) 650 mg Q4H PRN GT Mild Pain/Temp > 100.5 03/22/18 12:05 04/21/18 12:04 03/23/18 15:53 Atorvastatin Calcium (Lipitor) 10 mg BEDTIME GT 03/23/18 21:00 04/22/18 20:59 Chlorhexidine Gluconate (Elizabeth-Hex 2%) 1 applic DAILY@2000 TOPIC 03/22/18 20:00 04/21/18 19:59 03/22/18 20:53 Epoetin Dat (Procrit (for non ESRD use)) 5,000 units SUN-SUN-SUN SUBQ 03/22/18 21:00 04/21/18 20:59 03/22/18 20:53 Heparin Sodium (Porcine) (Heparin 5000 units/ml) 5,000 units EVERY 12 HOURS SUBQ 03/22/18 09:00 04/21/18 08:59 03/23/18 08:10 Levofloxacin 100 ml @ 100 mls/hr Q48H IVPB 03/23/18 22:00 03/30/18 21:59 Piperacillin Sod/ Tazobactam Sod 3.375 gm/Sodium Chloride 110 ml @ 27.5 mls/hr EVERY 12 HOURS IVPB 03/22/18 09:00 03/27/18 08:59 03/23/18 08:09 Potassium Chloride 10 meq/ Dextrose 1,005 ml @ 50 mls/hr Q20H6M IV 03/23/18 10:00 04/22/18 09:59 03/23/18 10:42 Vancomycin HCl (Vanco rx to dose) 1 ea DAILY PRN MISC Per rx protocol 03/22/18 04:15 04/21/18 04:14 Arleth Aranda MD Mar 23, 2018 16:17
[2018-03-23 20:00] VITALS: BP 154/100
[2018-03-23] MEDS: Dyna-Hex 2% Top Sol 2oz TOPIC SCH (20:07)
--- NOTE | 2018-03-23 21:01 | Consultation ---
DATE OF CONSULTATION: 03/23/[address] Sho Nogueira CONSULTING PHYSICIAN: Terence Kaur M.D. REFERRING PHYSICIAN: Annette Lee M.D. REASON FOR REFERRAL: Atrial fibrillation and questionable congestive heart failure. HISTORY OF PRESENT ILLNESS: This is an elderly gentleman who is not able to provide any meaningful history whatsoever. Information was obtained from review of the patient's chart including data from [facility] facility where he is residing and from Dr. Lee's notation. Apparently, the patient was a [facility], was noted to have white count of 23,000. He was noted to have rapid breathing and the patient was transferred to the acute care hospital here at [facility] under the care of Dr. Lee who is now scheduled to take care of the patient as his primary care. The patient is unable to provide any meaningful history. PAST MEDICAL HISTORY: Information from the chart indicates past medical history positive for gastrostomy tube, history of sepsis, hypertension, dysphagia, dementia, diabetes mellitus, anemia, atrial fibrillation, gastroesophageal reflux disease, hyperlipidemia. ALLERGIES: Allergic to aspirin at the present time. SOCIAL HISTORY: At the present time resides at [facility]. He does not smoke or drink alcoholic beverages. Prior use is really not known. REVIEW OF SYSTEMS: Unable to obtain. PHYSICAL EXAMINATION: GENERAL: Shows to be elderly gentleman, in no respiratory distress. NECK: Supple. No jugular venous distention is noted. LUNGS: Crackles noted on the left side more so than on the right side. CARDIAC: Regular rhythm. There is a faint systolic murmur. No RV lifts, heaves, thrills, or gallops noted. ABDOMEN: Soft and nontender. G-tube is present. EXTREMITIES: There is no edema. NEUROLOGIC: Not communicating, not responsive. LABORATORY VALUES: An echocardiogram technically difficult study, normal wall motion with ejection fraction 70% to 75%, moderate left ventricular hypertrophy, mild valvular regurgitation. EKG sinus rhythm, left axis deviation, no significant ST or T-wave abnormalities. Chest x-ray shows interstitial prominence similar to prior study, low lung volumes, small pleural effusion on the left side, no pneumothorax, heart unremarkable. Mediastinum and bones are unremarkable. White count on admission 03/21/2018 was 26 now 15.8, hemoglobin 8.4, and platelet count 145 at this time. Blood gases on 03/23/2018, pH 7.49, pCO2 24, pO2 75, and bicarbonate of 18. Sodium 154, potassium 3.3, chloride 119, bicarb 21, BUN of 112, with creatinine of 2.1, glucose of 225. Lactic acid of 2.9 and 2.5 subsequently. Magnesium of 3.0. Troponin of 0.049. Liver function tests performed earlier were relatively normal and the patient's CPK at the time of admission was 1631. Initial troponin of 1.056 down to 0.449. Coags, INR 1.1 the PTT of 33. Urinalysis showed 2+ leukocyte esterase, 2 to 4 WBCs. ASSESSMENT AND PLAN: 1. Respiratory insufficiency. 2. Cnt-VD-itpizfeuv myocardial infarction, type 2 demand related. 3. Possible pneumonia. 4. Dementia. 5. Diabetes mellitus type 2. 6. Decubitus ulcers. 7. G-tube. Dr. Lee, this patient was seen in cardiac consultation. The patient has had a limited echocardiogram performed. The M-mode measurements are not completely clear although the left atrium does not appear to be enlarged. There is some left ventricular hypertrophy, LV function appears to be normal. Cardiac enzymes minimally abnormal noted at the time admission appears to be in downtrend and the patient with significant dementia, really not a candidate for any significant cardiac therapy, only indication for aspirin and/or statins and/or beta-lazarus if tachycardic may be reasonable in this elderly patient who is DNR. Continue treatment of underlying infection as per Infectious Diseases consultation. Repeat EKG will be ordered to assure no changes in ST-segment changes however. Again, the patient is not a candidate for any aggressive cardiac care, only conservative cardiac care. Terence Kaur M.D. DR: Lucina JOB#: [id number] CC:
[2018-03-24] VITALS: BP 154/69
--- NOTE | 2018-03-24 00:46 | Consultation ---
DATE OF CONSULTATION: 03/23/2018 INFECTIOUS DISEASES CONSULTATION CONSULTING PHYSICIAN: Arleth Aranda M.D. ATTENDING PHYSICIAN: Annette Lee M.D. REFERRING PHYSICIAN: Annette Lee M.D. REASON FOR CONSULTATION: Sepsis, UTI, pyelonephritis, fevers, leukocytosis, pneumonia. CHIEF COMPLAINT: The patient's chief complaint coming into the hospital is sepsis. HISTORY OF PRESENT ILLNESS: The patient is an 79-year-old male who comes into the [facility] with fevers, leukocytosis, and sepsis. The patient is short of breath and has possible pneumonia on chest x-ray. Urine culture is growing Enterobacter and probably has Enterobacter urinary tract infection and pyelonephritis. Because of the sepsis, Infectious Diseases consultation requested. The patient placed on meropenem, vancomycin, and Levaquin. He was on Zosyn which I discontinued. Sputum culture is pending. Urine cultures noted. Blood cultures negative to date. The patient cannot give any history at this time. He is lethargic, poorly responsive. He has a Perez. Case was discussed with the RN. The patient's family at the bedside. MAR was noted. Notes were reviewed. The patient will be continued on meropenem, vancomycin, and Levaquin. Pending final workup. PAST MEDICAL HISTORY: The patient has a past medical history of organic brain disease, dysphagia, G-tube, history of recurrent septicemia, history of diabetes, history of stage II sacral decubitus, elevated creatinine, anemia, MT, CAD which he came in with. He has history of atrial fibrillation, hypertension, possible history of hyperlipidemia. MEDICATIONS: Upon reviewing the MAR, the patient is on the following medications: He is Levaquin, meropenem, vancomycin, potassium, atorvastatin, Lipitor, Epogen, chlorhexidine, acetaminophen, heparin, vancomycin, Levaquin, meropenem. Outside medications noted and reconciliated. ALLERGIES: Aspirin. SOCIAL HISTORY: Negative for smoking, alcohol, or drug abuse at this time. FAMILY HISTORY: Noncontributory per the records. No mention of exposure to tuberculosis or cancer. REVIEW OF SYSTEMS: CONSTITUTIONAL: The patient has generalized fatigue and weakness. He is poorly responsive, lethargic, short of breath. He has fevers. HEAD AND NECK: Not assessed. CARDIAC: No pressors. GASTROINTESTINAL: No nausea, vomiting, or diarrhea. GENITOURINARY: He has Perez. PULMONARY: Shortness of breath. No significant hemoptysis or secretions. SKIN: No rash. NEUROLOGIC: No seizures. Review of systems is limited in this patient. He does have what looks like wounds that were noted and reviewed. PHYSICAL EXAMINATION: VITAL SIGNS: T-max 100.6, pulse rate 112, respiratory rate 45, blood pressure 132/68, saturation 98%. Temperature now is 98.0, T-max 100.6, pulse rate 112, respiratory 45, blood pressure 132/68, saturation 97% on 2 liters nasal cannula. GENERAL: Lethargic, weak, poorly responsive, nonverbal. HEENT: Eyes are closed. Head neck exam, oral exam, no thrush. Does not opens eyes. No icterus. Neck seems to be supple. Normocephalic. HEART: Regular. No obvious gallop or murmur. Occasionally irregular, tachycardia. ABDOMEN: Soft. Positive bowel sounds. Cannot assess tenderness. LUNGS: Bilateral rhonchi, rales, and crackles. No rash was noted. MUSCULOSKELETAL: No effusions. Legs are without cellulitis. PERIPHERAL VASCULAR: No gangrene. GENITOURINARY: He has Perez. Urine is cloudy. LINE SITES: Without phlebitis. NEUROLOGIC: Generalized weakness and poorly responsive SKIN: Wounds were noted, do not look acutely infected. States stage II sacral wound. LABORATORY DATA: Laboratory data as follows. White count on admission 25.6 now white count 15.8, hemoglobin 8.4, and platelet count is 145. Creatinine is 2.1. LFTs were noted. Urinalysis had 2 to 4 white blood cells, 2+ leukocyte esterase, many bacteria. Chest x-ray showed bilateral interstitial airspace opacities and effusions. ASSESSMENT/PLAN: 1. The patient has sepsis syndrome, leukocytosis, fevers, SIRS criteria. The patient has Enterobacter urinary tract infection and pyelonephritis. The patient also has possible pneumonia such as community-acquired versus aspiration healthcare-acquired pneumonia which is at high risk for. Continue meropenem, Levaquin, and vancomycin this will cover the urinary tract infection, pyelonephritis, and sepsis. Sputum culture could not be obtained as discussed with nursing staff. Continue meropenem, Levaquin, and vancomycin. Check sputum culture if possible. Check laboratories and chest x-ray. Prognosis is poor. 2. Acute kidney injury with elevated creatinine. 3. Anemia. 4. Thrombocytopenia. 5. MT and CAD. 6. Nonsurgical candidate. 7. Organic brain syndrome. 8. History of sepsis. 9. Dysphagia. 10. G-tube. 11. Diabetes. 12. Hypertension. 13. Possible hyperlipidemia. 14. Skin care protocol. 15. Hypertension and diabetes treatment primary. 16. Allergic to aspirin. 17. Social history is negative. 18. Family history is noncontributory. 19. MAR was noted. 20. Case discussed with RN. 21. The patient has Perez. 22. Continue treatment per primary consultants. 23. Notes and records were noted and orders were entered. Arleth Aranda M.D. DR: Mar JOB#: [id number] CC:
[2018-03-24 04:00] VITALS: BP 156/56
[2018-03-24] MEDS: Potassium Chloride 10 MEQ in D5W 1000ml 1,000 ML IV SCH (05:06)
[2018-03-24 07:52] LABS: HEMATOCRIT 29.2 % (42.0-52.0); HEMOGLOBIN 8.9 G/DL (14.2-18.0); MEAN CORPUSCULAR VOLUME 105 FL (80-99); PLATELET COUNT 173 K/UL (150-450); RED BLOOD COUNT 2.79 M/UL (4.70-6.10); RED CELL DISTRIBUTION WIDTH 19.9 % (11.6-14.8); WHITE BLOOD COUNT 19.4 K/UL (4.8-10.8)
[2018-03-24 08:00] VITALS: BP 176/66
[2018-03-24 08:11] LABS: ANION GAP 16 mmol/L (5-15); BLOOD UREA NITROGEN 96 mg/dL (7-18); CALCIUM 9.3 MG/DL (8.5-10.1); CARBON DIOXIDE 20 MMOL/L (21-32); CHLORIDE 121 MMOL/L (98-107); CREATININE 1.8 MG/DL (0.55-1.30); POTASSIUM 3.5 MMOL/L (3.5-5.1); SODIUM 157 MMOL/L (136-145)
--- NOTE | 2018-03-24 08:52 | General Progress Note ---
Assessment/Plan Assessment/Plan Pneumonia _ IV Abx Acute Pyelonephritis Seen by ID The patient has sepsis syndrome, leukocytosis, fevers, SIRS criteria. The patient has Enterobacter urinary tract infection and pyelonephritis. The patient also has possible pneumonia such as community-acquired versus aspiration healthcare-acquired pneumonia which is at high risk for. Continue meropenem, Levaquin, and vancomycin this will cover the urinary tract infection, pyelonephritis, and sepsis. Sputum culture could not be obtained as discussed with nursing staff. Continue meropenem, Levaquin, and vancomycin. Check sputum culture if possible. Check laboratories and chest x-ray. Prognosis is poor. CHF + Rapid A,. Fib _ dig, now sinus rarte. Car Consult, 2 D Echo done poor quality. NSTEMI -due to high cardiac demand. Now settling. Pt. not a candidate for Cardiac invasive w/u. Subjective Allergies: Coded Allergies: ASPIRIN (Verified Allergy, Unknown, 03/21/18) Subjective Less dyspneic. Objective Last 24 Hour Vital Signs Date Time Temp Pulse Resp B/P (MAP) Pulse Ox O2 Delivery O2 Flow Rate FiO2 03/24/18 04:00 114 03/24/18 04:00 98.4 104 42 156/56 (89) 96 98.4 03/24/18 00:00 97.7 105 41 154/69 (97) 96 97.7 03/24/18 00:00 109 03/23/18 21:00 Nasal Cannula 3.0 03/23/18 20:00 98.6 114 42 154/100 (118) 95 98.6 03/23/18 20:00 110 03/23/18 17:00 100.0 100.0 03/23/18 16:23 100.0 03/23/18 16:00 113 03/23/18 15:53 100.6 03/23/18 15:53 100.6 113 49 96 100.6 03/23/18 12:00 114 03/23/18 12:00 99.3 115 44 131/60 (83) 96 99.3 03/23/18 09:17 107 03/23/18 09:00 Nasal Cannula 2.0 Intake and Output 03/23/18 03/24/18 19:00 07:00 Intake Total 900.0 ml 1135 ml Output Total 850 ml 600 ml Balance 50.0 ml 535 ml Free Water 100 ml 150 ml IV Total 560.0 ml 745 ml Tube Feeding 240 ml 240 ml Output Urine Total 850 ml 600 ml # Bowel Movements 1 Laboratory Tests 03/24/18 05:35: White Blood Count 19.4H, Red Blood Count 2.79L, Hemoglobin 8.9L, Hematocrit 29.2L, Mean Corpuscular Volume 105H, Mean Corpuscular Hemoglobin 31.8H, Mean Corpuscular Hemoglobin Concent 30.4L, Red Cell Distribution Width 19.9H, Platelet Count 173, Mean Platelet Volume 11.2H, Neutrophils (%) (Auto) , Lymphocytes (%) (Auto) , Monocytes (%) (Auto) , Eosinophils (%) (Auto) , Basophils (%) (Auto) , Neutrophils % (Manual) [Pending], Lymphocytes % (Manual) [Pending], Platelet Estimate [Pending], Platelet Morphology [Pending], Sodium Level 157H, Potassium Level 3.5, Chloride Level 121H, Carbon Dioxide Level 20L, Anion Gap 16H, Blood Urea Nitrogen 96H, Creatinine 1.8H, Estimat Glomerular Filtration Rate , Glucose Level 271H, Calcium Level 9.3, Random Vancomycin Level 11.5 Height (Feet): 5 Height (Inches): 7.00 Weight (Pounds): 121 Objective Monitor Sinus Tach ~110 Cv tach Lungs B Anusha Triplett SNT. BS + E No GIANNAE Annette Lee MD Mar 24, 2018 08:52
[2018-03-24] MEDS: Heparin 5000 units/ml inj SUBQ SCH ×2 (09:28→21:30)
[2018-03-24] MEDS ORDERED: Vancomycin 1gm/D5W 275ml IVPB ONE ×2 (10:00)
--- NOTE | 2018-03-24 10:27 | Diagnostic Imaging Report ---
History: INFECT Exam: XR CXR 1 VIEW Comparison: 03/23/2018 FINDINGS/IMPRESSION: Patchy opacity at the left base may be slightly increased. No significant change in patchy opacity at the right base. Patient is rotated to the right.
[2018-03-24] MEDS: Acetaminophen 650mg/20.3ml GT PRN (11:27)
[2018-03-24 11:51] VITALS: BP 145/65
--- NOTE | 2018-03-24 12:18 | Cardiology Report ---
APPROVED REPORT EKG Measurement Heart [id number] Normal sinus rhythm Left axis deviation Possible Lateral infarct, age undetermined Abnormal ECG
[2018-03-24] MEDS: guaiFENesin 100mg/5ml Liq ud ORAL PRN (12:32)
--- NOTE | 2018-03-24 13:13 | Cardiology Report ---
APPROVED REPORT EXAM: Two-dimensional and M-mode echocardiogram with Doppler and color Doppler. INDICATION Atrial Fibrillation M-Mode DIMENSIONS Left Atrium (MM)1.7 (1.6-4.0cm) Aortic Root2.9 (2.0-3.7cm) Aortic Cusp Exc.1.6 (1.5-2.0cm) Technically difficult study due to poor acoustical windows. M-mode measurements not obtainable due to cardiac structure. Normal left ventricular chamber size, systolic function and wall motion. Left ventricular ejection fraction estimated to be 70-75%. Moderate left ventricular hypertrophy. No evidence of pericardial or pleural effusion. All other cardiac chamber sizes are within normal limits. Focal aortic valve sclerosis with adequate cusp excursion. Thickened mitral valve leaflets with normal excursion. Moderate mitral annulus and aortic root. Pulmonic valve not well visualized. Normal tricuspid valve structure. IVC is not obtainable due to GI tube. A color flow and spectral Doppler study was performed and revealed: Mild aortic regurgitation. Trace mitral regurgitation. Mitral diastolic function not obtainable due to arrythmia. Trace tricuspid regurgitation.
--- NOTE | 2018-03-24 13:39 | Cardiology Progress Note ---
Assessment/Plan Assessment/Plan 1. Respiratory insufficiency. 2. Aye-FA-knelcjpgm myocardial infarction, type 2 demand related. 3. LLL pneumonia. 4. Dementia. 5. Diabetes mellitus type 2. 6. Decubitus ulcers. 7. G-tube. 8. Bacteremia 9. asa allergic iv abx epr id seem more tachypneic will start on hhn now is dnr trop down trend allergic to asa d/w 2 dtr adn id following echo hyperdynamic systolic function na is higher ivf per dr murphy tele sinus at risk for afib Subjective ROS Limited/Unobtainable: Yes Objective Last 24 Hour Vital Signs Date Time Temp Pulse Resp B/P (MAP) Pulse Ox O2 Delivery O2 Flow Rate FiO2 03/24/18 11:57 100.2 03/24/18 11:51 101.0 110 40 145/65 (91) 95 101.0 03/24/18 11:27 101.0 03/24/18 09:00 Nasal Cannula 3.0 03/24/18 08:00 98.2 127 40 176/66 (102) 95 98.2 03/24/18 04:00 114 03/24/18 04:00 98.4 104 42 156/56 (89) 96 98.4 03/24/18 00:00 97.7 105 41 154/69 (97) 96 97.7 03/24/18 00:00 109 03/23/18 21:00 Nasal Cannula 3.0 03/23/18 20:00 98.6 114 42 154/100 (118) 95 98.6 03/23/18 20:00 110 03/23/18 17:00 100.0 100.0 03/23/18 16:00 113 03/23/18 15:53 100.6 03/23/18 15:53 100.6 113 49 96 100.6 General Appearance: other - tachypneic Neck: supple Cardiovascular: normal rate, regular rhythm Respiratory/Chest: rhonchi - left Intake and Output 03/23/18 03/24/18 19:00 07:00 Intake Total 900.0 ml 1135 ml Output Total 850 ml 600 ml Balance 50.0 ml 535 ml Free Water 100 ml 150 ml IV Total 560.0 ml 745 ml Tube Feeding 240 ml 240 ml Output Urine Total 850 ml 600 ml # Bowel Movements 1 Laboratory Tests Test 03/24/18 05:35 White Blood Count 19.4 K/UL (4.8-10.8) H Red Blood Count 2.79 M/UL (4.70-6.10) L Hemoglobin 8.9 G/DL (14.2-18.0) L Hematocrit 29.2 % (42.0-52.0) L Mean Corpuscular Volume 105 FL (80-99) H Mean Corpuscular Hemoglobin 31.8 PG (27.0-31.0) H Mean Corpuscular Hemoglobin Concent 30.4 G/DL (32.0-36.0) L Red Cell Distribution Width 19.9 % (11.6-14.8) H Platelet Count 173 K/UL (150-450) Mean Platelet Volume 11.2 FL (6.5-10.1) H Neutrophils (%) (Auto) % (45.0-75.0) Lymphocytes (%) (Auto) % (20.0-45.0) Monocytes (%) (Auto) % (1.0-10.0) Eosinophils (%) (Auto) % (0.0-3.0) Basophils (%) (Auto) % (0.0-2.0) Differential Total Cells Counted 100 Neutrophils % (Manual) 88 % (45-75) H Lymphocytes % (Manual) 4 % (20-45) L Monocytes % (Manual) 6 % (1-10) Eosinophils % (Manual) 1 % (0-3) Basophils % (Manual) 0 % (0-2) Band Neutrophils 1 % (0-8) Platelet Estimate Adequate Platelet Morphology Normal Hypochromasia 1+ Anisocytosis 1+ Sodium Level 157 MMOL/L (136-145) H Potassium Level 3.5 MMOL/L (3.5-5.1) Chloride Level 121 MMOL/L (98-107) H Carbon Dioxide Level 20 MMOL/L (21-32) L Anion Gap 16 mmol/L (5-15) H Blood Urea Nitrogen 96 mg/dL (7-18) H Creatinine 1.8 MG/DL (0.55-1.30) H Estimat Glomerular Filtration Rate mL/min (>60) Glucose Level 271 MG/DL (74-106) H Calcium Level 9.3 MG/DL (8.5-10.1) Random Vancomycin Level 11.5 ug/mL Microbiology Date/Time Source Procedure Growth Status 03/21/18 21:27 Blood Blood Culture - Preliminary Resulted 03/21/18 21:17 Blood Blood Culture - Preliminary NO GROWTH AFTER 48 HOURS Resulted 03/21/18 21:35 Urine,Clean Catch Urine Culture - Final Enterobacter Cloacae Complex Complete Terence Kaur MD Mar 24, 2018 13:39
[2018-03-24] MEDS ORDERED: Albuterol/Ipratropium 3ml neb HHN PRN (13:45)
[2018-03-24 15:55] VITALS: BP 155/52
[2018-03-24 20:00] VITALS: BP 145/60
[2018-03-24] MEDS: Dyna-Hex 2% Top Sol 2oz TOPIC SCH (21:27)
[2018-03-25] VITALS (7 sets, daily range): BP systolic 112–177; BP diastolic 55–132
[2018-03-25] MEDS: Potassium Chloride 10 MEQ in D5W 1000ml 1,000 ML IV SCH (00:01)
[2018-03-25] MEDS ORDERED: Vancomycin 750mg/NS 250ml IVPB SCH (07:00)
[2018-03-25 07:54] LABS: ANION GAP 12 mmol/L (5-15); BLOOD UREA NITROGEN 73 mg/dL (7-18); CALCIUM 8.9 MG/DL (8.5-10.1); CARBON DIOXIDE 23 MMOL/L (21-32); CHLORIDE 122 MMOL/L (98-107); CREATININE 1.2 MG/DL (0.55-1.30); POTASSIUM 4.3 MMOL/L (3.5-5.1); SODIUM 157 MMOL/L (136-145)
--- NOTE | 2018-03-25 08:41 | Cardiology Progress Note ---
Assessment/Plan Assessment/Plan sepsis pneumonia severe hypernatremia tachycardia will decrease frequnetcy of albuterol to avoid severe tachcyardia Subjective Subjective The patient is non verbal, confused Objective Last 24 Hour Vital Signs Date Time Temp Pulse Resp B/P (MAP) Pulse Ox O2 Delivery O2 Flow Rate FiO2 03/25/18 04:00 108 03/25/18 04:00 98.8 107 39 155/76 (102) 96 98.8 03/25/18 00:23 97 03/25/18 00:00 98.2 111 39 150/77 (101) 96 98.2 03/24/18 21:00 Nasal Cannula 3.0 03/24/18 20:40 103 03/24/18 20:00 Nasal Cannula 3.0 32 03/24/18 20:00 98.2 100 41 145/60 (88) 96 98.2 03/24/18 19:30 100 20 Nasal Cannula 3.0 32 03/24/18 16:00 97 03/24/18 15:55 98.2 98 40 155/52 (86) 95 98.2 03/24/18 14:03 104 28 94 Nasal Cannula 3.0 32 03/24/18 13:50 103 28 94 Nasal Cannula 3.0 32 03/24/18 13:49 103 28 Nasal Cannula 3.0 32 03/24/18 12:00 105 03/24/18 11:57 100.2 03/24/18 11:51 101.0 110 40 145/65 (91) 95 101.0 03/24/18 11:27 101.0 03/24/18 09:00 Nasal Cannula 3.0 General Appearance: other - looks toxic, very frail, tachypenic EENT: other - facial droop Neck: supple Rhythm: ST Cardiovascular: tachycardia Respiratory/Chest: accessory muscle use, crackles/rales Abdomen: tender Extremities: other - contracted, atrophic Neurologic: disoriented Intake and Output 03/24/18 03/25/18 19:00 07:00 Intake Total 1138.708 ml 880 ml Output Total 850 ml 600 ml Balance 288.708 ml 280 ml Intake Oral 0 ml IV Total 898.708 ml 600 ml Tube Feeding 240 ml 220 ml Other 60 ml Output Urine Total 850 ml 600 ml # Bowel Movements 1 Laboratory Tests Test 03/25/18 04:03 03/25/18 06:00 Random Vancomycin Level 16.4 ug/mL Sodium Level 157 MMOL/L (136-145) H Potassium Level 4.3 MMOL/L (3.5-5.1) Chloride Level 122 MMOL/L (98-107) H Carbon Dioxide Level 23 MMOL/L (21-32) Anion Gap 12 mmol/L (5-15) Blood Urea Nitrogen 73 mg/dL (7-18) H Creatinine 1.2 MG/DL (0.55-1.30) Estimat Glomerular Filtration Rate mL/min (>60) Glucose Level 278 MG/DL (74-106) H Calcium Level 8.9 MG/DL (8.5-10.1) Microbiology Date/Time Source Procedure Growth Status 03/24/18 04:00 Sputum Expectorated Gram Stain - Final Resulted 03/24/18 04:00 Sputum Expectorated Sputum Culture - Preliminary Resulted 03/23/18 15:00 Nose MRSA Culture - Final NO METHICILLIN RESISTANT STAPH AUREUS... Complete Sho Nogueira MD Mar 25, 2018 08:41
[2018-03-25] MEDS ORDERED: Albuterol/Ipratropium 3ml neb HHN PRN ×2 (08:45→15:19)
[2018-03-25] MEDS ORDERED: Vancomycin 1gm/D5W 275ml IVPB ONE ×2 (10:00)
[2018-03-25] MEDS: Heparin 5000 units/ml inj SUBQ SCH ×2 (10:04→20:17)
[2018-03-25] MEDS: guaiFENesin 100mg/5ml Liq ud ORAL PRN (11:36)
[2018-03-25] MEDS: Acetaminophen 650mg/20.3ml GT PRN (11:36)
[2018-03-25] MEDS: Vancomycin 750mg/NS 250ml IVPB SCH (12:07)
[2018-03-25 14:01] LABS: HEMATOCRIT 24.3 % (42.0-52.0); HEMOGLOBIN 7.6 G/DL (14.2-18.0); MEAN CORPUSCULAR VOLUME 102 FL (80-99); PLATELET COUNT 134 K/UL (150-450); RED BLOOD COUNT 2.38 M/UL (4.70-6.10); RED CELL DISTRIBUTION WIDTH 20.4 % (11.6-14.8)
--- NOTE | 2018-03-25 15:19 | General Progress Note ---
Assessment/Plan Assessment/Plan Pneumonia _ IV Abx Acute Pyelonephritis Seen by ID The patient has sepsis syndrome, leukocytosis, fevers, SIRS criteria. The patient has Enterobacter urinary tract infection and pyelonephritis. The patient also has possible pneumonia such as community-acquired versus aspiration healthcare-acquired pneumonia which is at high risk for. Continue meropenem, Levaquin, and vancomycin this will cover the urinary tract infection, pyelonephritis, and sepsis. Sputum culture could not be obtained as discussed with nursing staff. Continue meropenem, Levaquin, and vancomycin. Check sputum culture if possible. Check laboratories and chest x-ray. Prognosis is poor. CHF + Rapid A,. Fib _ dig, now sinus rarte. Car Consult, 2 D Echo done poor quality. NSTEMI -due to high cardiac demand. Now settling. Pt. not a candidate for Cardiac invasive w/u. Hypernatremic - see orders. Subjective Allergies: Coded Allergies: ASPIRIN (Verified Allergy, Unknown, 03/21/18) Subjective Less dyspneic. Objective Last 24 Hour Vital Signs Date Time Temp Pulse Resp B/P (MAP) Pulse Ox O2 Delivery O2 Flow Rate FiO2 03/25/18 12:00 100.0 127 30 112/55 (74) 92 100.0 03/25/18 11:50 119 03/25/18 11:17 131 25 92 Nasal Cannula 3.0 32 03/25/18 10:45 110 28 Nasal Cannula 3.0 32 03/25/18 10:45 Nasal Cannula 3.0 32 03/25/18 10:45 110 28 91 Nasal Cannula 3.0 32 03/25/18 10:45 91 Nasal Cannula 3.0 32 03/25/18 09:00 Nasal Cannula 3.0 03/25/18 08:00 99.0 112 39 177/68 (104) 98 99.0 03/25/18 07:50 111 03/25/18 04:00 108 03/25/18 04:00 98.8 107 39 155/76 (102) 96 98.8 03/25/18 00:23 97 03/25/18 00:00 98.2 111 39 150/77 (101) 96 98.2 03/24/18 21:00 Nasal Cannula 3.0 03/24/18 20:40 103 03/24/18 20:00 Nasal Cannula 3.0 32 03/24/18 20:00 98.2 100 41 145/60 (88) 96 98.2 03/24/18 19:30 100 20 Nasal Cannula 3.0 32 03/24/18 16:00 97 03/24/18 15:55 98.2 98 40 155/52 (86) 95 98.2 Intake and Output 03/24/18 03/25/18 19:00 07:00 Intake Total 1138.708 ml 930 ml Output Total 850 ml 600 ml Balance 288.708 ml 330 ml Intake Oral 0 ml IV Total 898.708 ml 650 ml Tube Feeding 240 ml 220 ml Other 60 ml Output Urine Total 850 ml 600 ml # Bowel Movements 1 Laboratory Tests 03/25/18 04:00: Stool Occult Blood Positive 03/25/18 04:03: Random Vancomycin Level 16.4 03/25/18 06:00: Sodium Level 157H, Potassium Level 4.3, Chloride Level 122H, Carbon Dioxide Level 23, Anion Gap 12, Blood Urea Nitrogen 73H, Creatinine 1.2, Estimat Glomerular Filtration Rate , Glucose Level 278H, Calcium Level 8.9 03/25/18 13:50: White Blood Count 18.0H, Red Blood Count 2.38L, Hemoglobin 7.6L, Hematocrit 24.3L, Mean Corpuscular Volume 102H, Mean Corpuscular Hemoglobin 32.0H, Mean Corpuscular Hemoglobin Concent 31.3L, Red Cell Distribution Width 20.4H, Platelet Count 134L, Mean Platelet Volume 10.5H, Neutrophils (%) (Auto) , Lymphocytes (%) (Auto) , Monocytes (%) (Auto) , Eosinophils (%) (Auto) , Basophils (%) (Auto) , Differential Total Cells Counted 100, Neutrophils % ( Manual) 81H, Lymphocytes % (Manual) 7L, Monocytes % (Manual) 6, Eosinophils % ( Manual) 0, Basophils % (Manual) 0, Band Neutrophils 6, Platelet Estimate DecreasedL, Platelet Morphology Normal, Hypochromasia 1+, Anisocytosis 1+, Macrocytosis Height (Feet): 5 Height (Inches): 7.00 Weight (Pounds): 121 Objective Monitor Sinus Tach ~110 Cv tach Lungs B Ronchi Abd SNT. BS + E No CCE Annette Lee MD Mar 25, 2018 15:19
--- NOTE | 2018-03-25 17:40 | Infectious Diseases Prog Note ---
Assessment/Plan Assessment/Plan ASSESSMENT/PLAN: 1. sepsis, enterobacter uti/pyelonephritis, pna, leukocytosis, fevers, possible gram + bacteremia - continue meropenem, vancomycin and levofloxacin - f/u on sputum culture, blood cultures, chest -ray - monitor labs - pulmonary treatment 2. Acute kidney injury with elevated creatinine - cr improved 3. Anemia. 4. Thrombocytopenia. 5. [place] and CAD. 6. Nonsurgical candidate. 7. Organic brain syndrome. 8. History of sepsis. 9. Dysphagia. 10. G-tube. 11. Diabetes. 12. Hypertension. 13. Possible hyperlipidemia. 14. Skin care protocol. 15. Hypertension and diabetes treatment primary. 16. Allergic to aspirin. 17. Social history is negative. 18. Family history is noncontributory. 19. MAR was noted. 20. Case discussed with RN. 21. The patient has Mishra. 22. Continue treatment per primary consultants. 23. Notes and records were noted and orders were entered. 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 Subjective Constitutional: Reports: fatigue, other - lethargic, poorly responsive ; Denies : fever HEENT: Reports: congestion Respiratory: Reports: shortness of breath Cardiovascular: Reports: other - no pressors Gastrointestinal/Abdominal: Denies: nausea, vomiting, diarrhea Genitourinary: Reports: other - + mishra Neurologic: Reports: weakness, other - lethargic Psychiatric: Reports: no symptoms Skin: Denies: rash Hematologic: Denies: bleeding Musculoskeletal: Denies: pain Allergies: Coded Allergies: ASPIRIN (Verified Allergy, Unknown, 03/21/18) Objective Vital Signs Last 24 Hour Vital Signs Date Time Temp Pulse Resp B/P (MAP) Pulse Ox O2 Delivery O2 Flow Rate FiO2 03/25/18 15:48 99.7 98 18 160/64 (96) 97 99.7 03/25/18 15:45 109 03/25/18 12:00 100.0 127 30 112/55 (74) 92 100.0 03/25/18 11:50 119 03/25/18 11:17 131 25 92 Nasal Cannula 3.0 32 03/25/18 10:45 110 28 Nasal Cannula 3.0 32 03/25/18 10:45 Nasal Cannula 3.0 32 03/25/18 10:45 110 28 91 Nasal Cannula 3.0 32 03/25/18 10:45 91 Nasal Cannula 3.0 32 03/25/18 09:00 Nasal Cannula 3.0 03/25/18 08:00 99.0 112 39 177/68 (104) 98 99.0 03/25/18 07:50 111 03/25/18 04:00 108 03/25/18 04:00 98.8 107 39 155/76 (102) 96 98.8 03/25/18 00:23 97 03/25/18 00:00 98.2 111 39 150/77 (101) 96 98.2 03/24/18 21:00 Nasal Cannula 3.0 03/24/18 20:40 103 03/24/18 20:00 Nasal Cannula 3.0 32 03/24/18 20:00 98.2 100 41 145/60 (88) 96 98.2 03/24/18 19:30 100 20 Nasal Cannula 3.0 32 Height (Feet): 5 Height (Inches): 7.00 Weight (Pounds): 121 General Appearance: other - sob and congested HEENT: normocephalic, atraumatic, anicteric, mucous membranes moist Respiratory/Chest: crackles/rales, rhonchi - bilaterally Cardiovascular: normal rate, regular rhythm, no gallop/murmur, no JVD Abdomen: normal bowel sounds, soft, non tender, no organomegaly, non distended Genitourinary: other - + mishra - urine cloudy Extremities: no cyanosis Skin: no rash Neurologic/Psychiatric: motor weakness, other - lethargic and weak Lymphatic: no neck adenopathy Musculoskeletal: no effusion Objective 03/24 - chest x-ray - FINDINGS/IMPRESSION: Patchy opacity at the left base may be slightly increased. No significant change in patchy opacity at the right base. Patient is rotated to the right. Microbiology Date/Time Source Procedure Growth Status 03/21/18 21:27 Blood Blood Culture - Preliminary Gram Positive Cocci Resulted 03/24/18 04:00 Sputum Expectorated Gram Stain - Final Resulted 03/24/18 04:00 Sputum Expectorated Sputum Culture - Preliminary Resulted 03/21/18 21:35 Urine,Clean Catch Urine Culture - Final Enterobacter Cloacae Complex Complete 03/23/18 15:00 Rectum VRE Culture - Final Enterococcus Faecium - Vre Complete Microbiology Date/Time Source Procedure Growth Status 03/24/18 04:00 Sputum Expectorated Gram Stain - Final Resulted 03/24/18 04:00 Sputum Expectorated Sputum Culture - Preliminary Resulted 03/23/18 15:00 Nose MRSA Culture - Final NO METHICILLIN RESISTANT STAPH AUREUS... Complete 03/23/18 15:00 Rectum VRE Culture - Final Enterococcus Faecium - Vre Complete blood cultures - gram +, ID pending d/w microbiology Laboratory Tests Test 03/25/18 04:00 03/25/18 04:03 03/25/18 06:00 03/25/18 13:50 Stool Occult Blood Positive (NEGATIVE) Random Vancomycin Level 16.4 ug/mL Sodium Level 157 MMOL/L (136-145) H Potassium Level 4.3 MMOL/L (3.5-5.1) Chloride Level 122 MMOL/L (98-107) H Carbon Dioxide Level 23 MMOL/L (21-32) Anion Gap 12 mmol/L (5-15) Blood Urea Nitrogen 73 mg/dL (7-18) H Creatinine 1.2 MG/DL (0.55-1.30) Estimat Glomerular Filtration Rate mL/min (>60) Glucose Level 278 MG/DL (74-106) H Calcium Level 8.9 MG/DL (8.5-10.1) White Blood Count 18.0 K/UL (4.8-10.8) H Red Blood Count 2.38 M/UL (4.70-6.10) L Hemoglobin 7.6 G/DL (14.2-18.0) L Hematocrit 24.3 % (42.0-52.0) L Mean Corpuscular Volume 102 FL (80-99) H Mean Corpuscular Hemoglobin 32.0 PG (27.0-31.0) H Mean Corpuscular Hemoglobin Concent 31.3 G/DL (32.0-36.0) L Red Cell Distribution Width 20.4 % (11.6-14.8) H Platelet Count 134 K/UL (150-450) L Mean Platelet Volume 10.5 FL (6.5-10.1) H Neutrophils (%) (Auto) % (45.0-75.0) Lymphocytes (%) (Auto) % (20.0-45.0) Monocytes (%) (Auto) % (1.0-10.0) Eosinophils (%) (Auto) % (0.0-3.0) Basophils (%) (Auto) % (0.0-2.0) Differential Total Cells Counted 100 Neutrophils % (Manual) 81 % (45-75) H Lymphocytes % (Manual) 7 % (20-45) L Monocytes % (Manual) 6 % (1-10) Eosinophils % (Manual) 0 % (0-3) Basophils % (Manual) 0 % (0-2) Band Neutrophils 6 % (0-8) Platelet Estimate Decreased L Platelet Morphology Normal Hypochromasia 1+ Anisocytosis 1+ Macrocytosis Current Medications Medications (Trade) Dose Ordered Sig/Mani Route PRN Reason Start Time Stop Time Status Last Admin Dose Admin Acetaminophen (Tylenol) 650 mg Q4H PRN GT Mild Pain/Temp > 100.5 03/22/18 12:05 04/21/18 12:04 03/25/18 11:36 Albuterol/ Ipratropium (Albuterol/ Ipratropium) 3 ml Q4H PRN HHN Shortness of Breath 03/25/18 15:19 03/30/18 15:18 Atorvastatin Calcium (Lipitor) 10 mg BEDTIME GT 03/23/18 21:00 04/22/18 20:59 03/24/18 21:29 Chlorhexidine Gluconate (Elizabeth-Hex 2%) 1 applic DAILY@2000 TOPIC 03/22/18 20:00 04/21/18 19:59 03/24/18 21:27 Epoetin Dat (Procrit (for non ESRD use)) 5,000 units SUN-SUN-SUN SUBQ 03/22/18 21:00 04/21/18 20:59 03/22/18 20:53 Guaifenesin (Robitussin) 100 mg TIDPRN PRN ORAL For Cough 03/23/18 20:00 04/22/18 19:59 03/25/18 11:36 Heparin Sodium (Porcine) (Heparin 5000 units/ml) 5,000 units EVERY 12 HOURS SUBQ 03/22/18 09:00 04/21/18 08:59 03/25/18 10:04 Levofloxacin 100 ml @ 100 mls/hr Q48H IVPB 03/23/18 22:00 03/30/18 21:59 03/23/18 22:06 Meropenem 500 mg/ Sodium Chloride 50 ml @ 100 mls/hr Q12HR IVPB 03/23/18 21:00 03/28/18 20:59 03/25/18 10:16 Potassium Chloride 10 meq/ Dextrose 1,005 ml @ 50 mls/hr Q20H6M IV 03/23/18 10:00 04/22/18 09:59 03/25/18 00:01 Vancomycin HCl (Vanco rx to dose) 1 ea DAILY PRN MISC Per rx protocol 03/22/18 04:15 04/21/18 04:14 Vancomycin/Sodium Chloride 250 ml @ 166.667 mls/hr Q24H IVPB 03/25/18 11:00 03/30/18 10:59 03/25/18 12:07 Arleth Aranda MD Mar 25, 2018 17:40
[2018-03-25] MEDS: Dyna-Hex 2% Top Sol 2oz TOPIC SCH (20:15)
[2018-03-25] MEDS: Epogen (for non ESRD use) SUBQ SCH (21:33)
[2018-03-26] VITALS (7 sets, daily range): BP systolic 149–176; BP diastolic 51–97
[2018-03-26 08:33] LABS: HEMATOCRIT 23.8 % (42.0-52.0); HEMOGLOBIN 7.3 G/DL (14.2-18.0); MEAN CORPUSCULAR VOLUME 104 FL (80-99); PLATELET COUNT 119 K/UL (150-450); RED CELL DISTRIBUTION WIDTH 19.6 % (11.6-14.8); WHITE BLOOD COUNT 15.2 K/UL (4.8-10.8)
[2018-03-26] MEDS: Heparin 5000 units/ml inj SUBQ SCH ×2 (09:00→21:00)
[2018-03-26 09:11] LABS: BLOOD UREA NITROGEN 56 mg/dL (7-18); CALCIUM 8.6 MG/DL (8.5-10.1); CHLORIDE 121 MMOL/L (98-107); CREATININE 1.1 MG/DL (0.55-1.30); POTASSIUM 3.8 MMOL/L (3.5-5.1); SODIUM 156 MMOL/L (136-145)
[2018-03-26 09:16] LABS: CARBON DIOXIDE 23 MMOL/L (21-32)
[2018-03-26] MEDS: Vancomycin 750mg/NS 250ml IVPB SCH (10:46)
--- NOTE | 2018-03-26 10:57 | Diagnostic Imaging Report ---
Indication: Dyspnea Comparison: 03/24/2018 A single view chest radiograph was obtained. Findings: Interstitial opacities and prominent vascularity demonstrated with some airspace opacification at the left lung base. Heart size remains relatively normal. Small bilateral pleural effusions are suspected. Bones are osteopenic. IMPRESSION: mild CHF suspected.
--- NOTE | 2018-03-26 13:43 | General Progress Note ---
Assessment/Plan Assessment/Plan Pneumonia _ IV Abx Acute Pyelonephritis Seen by ID The patient has sepsis syndrome, leukocytosis, fevers, SIRS criteria. The patient has Enterobacter urinary tract infection and pyelonephritis. The patient also has possible pneumonia such as community-acquired versus aspiration healthcare-acquired pneumonia which is at high risk for. Continue meropenem, Levaquin, and vancomycin this will cover the urinary tract infection, pyelonephritis, and sepsis. Sputum culture could not be obtained as discussed with nursing staff. Continue meropenem, Levaquin, and vancomycin. Check sputum culture if possible. Check laboratories and chest x-ray. Prognosis is poor. CHF + Rapid A,. Fib _ dig, now sinus rarte. Car Consult, 2 D Echo done poor quality. NSTEMI -due to high cardiac demand. Now settling. Pt. not a candidate for Cardiac invasive w/u. Hypernatremic - see orders. Now BP high -see orders Subjective Allergies: Coded Allergies: ASPIRIN (Verified Allergy, Unknown, 03/21/18) Subjective Less dyspneic. Objective Last 24 Hour Vital Signs Date Time Temp Pulse Resp B/P (MAP) Pulse Ox O2 Delivery O2 Flow Rate FiO2 03/26/18 12:00 99 03/26/18 11:39 97.9 97 34 173/61 (98) 98 97.9 03/26/18 09:40 Venturi Mask 10.0 45 03/26/18 09:40 97 Venturi Mask 10.0 45 03/26/18 09:40 105 28 Venturi Mask 10.0 45 03/26/18 09:00 Venturi Mask 03/26/18 08:00 96 03/26/18 08:00 98.7 95 30 176/63 (100) 100 98.7 03/26/18 04:00 92 03/26/18 04:00 98.1 95 14 164/83 (110) 96 98.1 03/26/18 00:41 163/56 (91) 03/26/18 00:00 99.0 109 14 173/67 (102) 95 99.0 03/26/18 00:00 110 03/25/18 21:24 167/73 (104) 03/25/18 21:00 Venturi Mask 03/25/18 20:10 Venturi Mask 10.0 45 03/25/18 20:10 98 Venturi Mask 10.0 45 03/25/18 20:10 102 28 Venturi Mask 10.0 45 03/25/18 20:00 106 03/25/18 20:00 98.0 105 14 172/132 (145) 96 98.0 03/25/18 15:48 99.7 98 18 160/64 (96) 97 99.7 03/25/18 15:45 109 Intake and Output 03/25/18 03/26/18 19:00 07:00 Intake Total 1090.000 ml 1120 ml Output Total 800 ml 700 ml Balance 290.000 ml 420 ml Free Water 155 ml IV Total 850.000 ml 725 ml Tube Feeding 240 ml 240 ml Output Urine Total 800 ml 700 ml # Bowel Movements 1 Laboratory Tests 03/25/18 13:50: White Blood Count 18.0H, Red Blood Count 2.38L, Hemoglobin 7.6L, Hematocrit 24.3L, Mean Corpuscular Volume 102H, Mean Corpuscular Hemoglobin 32.0H, Mean Corpuscular Hemoglobin Concent 31.3L, Red Cell Distribution Width 20.4H, Platelet Count 134L, Mean Platelet Volume 10.5H, Neutrophils (%) (Auto) , Lymphocytes (%) (Auto) , Monocytes (%) (Auto) , Eosinophils (%) (Auto) , Basophils (%) (Auto) , Differential Total Cells Counted 100, Neutrophils % ( Manual) 81H, Lymphocytes % (Manual) 7L, Monocytes % (Manual) 6, Eosinophils % ( Manual) 0, Basophils % (Manual) 0, Band Neutrophils 6, Platelet Estimate DecreasedL, Platelet Morphology Normal, Hypochromasia 1+, Anisocytosis 1+, Macrocytosis 03/26/18 08:20: White Blood Count 15.2H, Red Blood Count 2.30L, Hemoglobin 7.3L, Hematocrit 23.8L, Mean Corpuscular Volume 104H, Mean Corpuscular Hemoglobin 31.8H, Mean Corpuscular Hemoglobin Concent 30.8L, Red Cell Distribution Width 19.6H, Platelet Count 119L, Mean Platelet Volume 10.5H, Neutrophils (%) (Auto) , Lymphocytes (%) (Auto) , Monocytes (%) (Auto) , Eosinophils (%) (Auto) , Basophils (%) (Auto) , Differential Total Cells Counted 100, Neutrophils % ( Manual) 80H, Lymphocytes % (Manual) 12L, Monocytes % (Manual) 4, Eosinophils % ( Manual) 2, Basophils % (Manual) 0, Band Neutrophils 2, Platelet Estimate DecreasedL, Platelet Morphology Normal, Hypochromasia 2+, Anisocytosis 2+, Macrocytosis 1+, Stomatocytes 1+, Sodium Level 156H, Potassium Level 3.8, Chloride Level 121H, Carbon Dioxide Level 23, Blood Urea Nitrogen 56H, Creatinine 1.1, Estimat Glomerular Filtration Rate , Glucose Level 275H, Calcium Level 8.6 Height (Feet): 5 Height (Inches): 7.00 Weight (Pounds): 121 Objective Monitor Sinus Tach ~110 Cv tach Lungs B Anusha Triplett SNT. BS + E No CCE Annette Lee MD Mar 26, 2018 13:43
[2018-03-26] MEDS: Levemir Flexpen SUBQ SCH (15:17)
[2018-03-26] MEDS: Dyna-Hex 2% Top Sol 2oz TOPIC SCH (21:43)
[2018-03-26] MEDS: Meropenem 1gm in NS 55ml IVPB SCH (21:48)
--- NOTE | 2018-03-26 21:53 | Cardiology Progress Note ---
Assessment/Plan Assessment/Plan sepsis pneumonia severe hypernatremia tachycardia will decrease frequnetcy of albuterol to avoid severe tachcyardia Subjective Subjective The patient is non verbal, confused Objective Last 24 Hour Vital Signs Date Time Temp Pulse Resp B/P (MAP) Pulse Ox O2 Delivery O2 Flow Rate FiO2 03/26/18 19:31 102 24 Venturi Mask 10.0 45 03/26/18 19:31 98 Venturi Mask 10.0 45 03/26/18 19:31 Venturi Mask 10.0 45 03/26/18 19:24 100.1 102 20 149/51 (83) 99 100.1 03/26/18 16:00 101 03/26/18 16:00 98.6 96 32 163/97 (119) 95 98.6 03/26/18 12:00 99 03/26/18 11:39 97.9 97 34 173/61 (98) 98 97.9 03/26/18 09:40 Venturi Mask 10.0 45 03/26/18 09:40 97 Venturi Mask 10.0 45 03/26/18 09:40 105 28 Venturi Mask 10.0 45 03/26/18 09:00 Venturi Mask 03/26/18 08:00 96 03/26/18 08:00 98.7 95 30 176/63 (100) 100 98.7 03/26/18 04:00 92 03/26/18 04:00 98.1 95 14 164/83 (110) 96 98.1 03/26/18 00:41 163/56 (91) 03/26/18 00:00 99.0 109 14 173/67 (102) 95 99.0 03/26/18 00:00 110 General Appearance: other - very chronically ill appearing EENT: other - facial droop Neck: supple Rhythm: ST Cardiovascular: tachycardia Respiratory/Chest: rhonchi - bilaterally Abdomen: soft Extremities: other - contracted, muscle atrophynon v Neurologic: aphasia Intake and Output 03/25/18 03/26/18 19:00 07:00 Intake Total 1090.000 ml 1120 ml Output Total 800 ml 700 ml Balance 290.000 ml 420 ml Free Water 155 ml IV Total 850.000 ml 725 ml Tube Feeding 240 ml 240 ml Output Urine Total 800 ml 700 ml # Bowel Movements 1 Laboratory Tests Test 03/26/18 08:20 03/26/18 14:30 White Blood Count 15.2 K/UL (4.8-10.8) H Red Blood Count 2.30 M/UL (4.70-6.10) L Hemoglobin 7.3 G/DL (14.2-18.0) L Hematocrit 23.8 % (42.0-52.0) L Mean Corpuscular Volume 104 FL (80-99) H Mean Corpuscular Hemoglobin 31.8 PG (27.0-31.0) H Mean Corpuscular Hemoglobin Concent 30.8 G/DL (32.0-36.0) L Red Cell Distribution Width 19.6 % (11.6-14.8) H Platelet Count 119 K/UL (150-450) L Mean Platelet Volume 10.5 FL (6.5-10.1) H Neutrophils (%) (Auto) % (45.0-75.0) Lymphocytes (%) (Auto) % (20.0-45.0) Monocytes (%) (Auto) % (1.0-10.0) Eosinophils (%) (Auto) % (0.0-3.0) Basophils (%) (Auto) % (0.0-2.0) Differential Total Cells Counted 100 Neutrophils % (Manual) 80 % (45-75) H Lymphocytes % (Manual) 12 % (20-45) L Monocytes % (Manual) 4 % (1-10) Eosinophils % (Manual) 2 % (0-3) Basophils % (Manual) 0 % (0-2) Band Neutrophils 2 % (0-8) Platelet Estimate Decreased L Platelet Morphology Normal Hypochromasia 2+ Anisocytosis 2+ Macrocytosis 1+ Stomatocytes 1+ Sodium Level 156 MMOL/L (136-145) H Potassium Level 3.8 MMOL/L (3.5-5.1) Chloride Level 121 MMOL/L (98-107) H Carbon Dioxide Level 23 MMOL/L (21-32) Blood Urea Nitrogen 56 mg/dL (7-18) H Creatinine 1.1 MG/DL (0.55-1.30) Estimat Glomerular Filtration Rate mL/min (>60) Glucose Level 275 MG/DL (74-106) H Calcium Level 8.6 MG/DL (8.5-10.1) Stool Occult Blood Pending Microbiology Date/Time Source Procedure Growth Status 03/24/18 04:00 Sputum Expectorated Gram Stain - Final Resulted 03/24/18 04:00 Sputum Culture - Preliminary Gram Negative Bacillus 1 Gram Negative Bacillus 2 Staphylococcus Aureus Resulted Sho Nogueira MD Mar 26, 2018 21:53
[2018-03-27] VITALS: BP 130/53
[2018-03-27 04:00] VITALS: BP 130/74
[2018-03-27 08:08] VITALS: BP 113/56
[2018-03-27] MEDS: Heparin 5000 units/ml inj SUBQ SCH ×2 (08:52→20:18)
[2018-03-27] MEDS: Meropenem 1gm in NS 55ml IVPB SCH ×2 (08:55→20:18)
[2018-03-27 09:16] LABS: ANION GAP 12 mmol/L (5-15); BLOOD UREA NITROGEN 48 mg/dL (7-18); CALCIUM 8.9 MG/DL (8.5-10.1); CARBON DIOXIDE 23 MMOL/L (21-32); CHLORIDE 120 MMOL/L (98-107); POTASSIUM 3.8 MMOL/L (3.5-5.1); SODIUM 155 MMOL/L (136-145)
[2018-03-27] MEDS: Vancomycin 750mg/NS 250ml IVPB SCH (10:48)
[2018-03-27 11:41] VITALS: BP 191/89
[2018-03-27] MEDS ORDERED: Metoprolol Succinate XL 50mg tab ORAL SCH (12:15)
[2018-03-27] MEDS ORDERED: Metoprolol Tartrate 50mg tab ORAL SCH (13:45)
[2018-03-27] MEDS: Acetaminophen 650mg/20.3ml GT PRN (13:56)
[2018-03-27] MEDS: Levemir Flexpen SUBQ SCH (15:18)
[2018-03-27 15:44] VITALS: BP 132/71
--- NOTE | 2018-03-27 17:03 | Infectious Diseases Prog Note ---
Assessment/Plan Assessment/Plan ASSESSMENT/PLAN: 1. sepsis, coag neg staph bacteremia, enterobacter uti/pyelonephritis, staph aureus/e.coli/enterobacter pna, leukocytosis, fevers - continue meropenem, vancomycin, discontinue levofloxacin - f/u on labs and chest x-ray - clinically better, more alert, fevers better, leukocytosis improved - pulmonary treatment - d/w Dr. Lee 2. Acute kidney injury with elevated creatinine - cr improved 3. Anemia. 4. Thrombocytopenia. 5. MA and CAD. 6. Nonsurgical candidate. 7. Organic brain syndrome. 8. History of sepsis. 9. Dysphagia. 10. G-tube. 11. Diabetes. 12. Hypertension. 13. Possible hyperlipidemia. 14. Skin care protocol. 15. Hypertension and diabetes treatment primary. 16. Allergic to aspirin. 17. Social history is negative. 18. Family history is noncontributory. 19. MAR was noted. 20. Case discussed with RN. 21. The patient has Mishra. 22. Continue treatment per primary consultants. 23. Notes and records were noted and orders were entered. 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 Subjective Constitutional: Reports: fatigue, other - more alert, still sob; Denies: fever HEENT: Reports: congestion Respiratory: Reports: shortness of breath Cardiovascular: Denies: chest pain Gastrointestinal/Abdominal: Denies: nausea, vomiting, diarrhea Genitourinary: Reports: other - + mishra Neurologic: Reports: weakness, other - more alert Psychiatric: Reports: no symptoms Skin: Denies: rash Hematologic: Denies: bleeding Musculoskeletal: Denies: pain Allergies: Coded Allergies: ASPIRIN (Verified Allergy, Unknown, 03/21/18) Objective Vital Signs Last 24 Hour Vital Signs Date Time Temp Pulse Resp B/P (MAP) Pulse Ox O2 Delivery O2 Flow Rate FiO2 03/27/18 16:12 89 03/27/18 15:44 99.4 90 22 132/71 (91) 94 99.4 03/27/18 14:26 97.2 03/27/18 13:56 99.0 03/27/18 13:55 118 138/81 03/27/18 12:00 127 03/27/18 11:41 99.0 130 24 191/89 (123) 96 99.0 03/27/18 11:01 115 24 96 Venturi Mask 10.0 45 03/27/18 10:50 111 26 97 Venturi Mask 10.0 45 03/27/18 09:00 Venturi Mask 03/27/18 08:08 98.2 96 22 113/56 (75) 97 98.2 03/27/18 08:00 101 03/27/18 07:36 104 24 Venturi Mask 10.0 45 03/27/18 07:36 97 Venturi Mask 10.0 45 03/27/18 07:36 Venturi Mask 10.0 45 03/27/18 04:00 97.9 104 20 130/74 (92) 97 97.9 03/27/18 04:00 105 03/27/18 00:00 101 03/27/18 00:00 98.2 106 20 130/53 (78) 97 98.2 03/26/18 21:00 Venturi Mask 03/26/18 20:00 105 03/26/18 19:31 102 24 Venturi Mask 10.0 45 03/26/18 19:31 98 Venturi Mask 10.0 45 03/26/18 19:31 Venturi Mask 10.0 45 18 19:24 100.1 102 20 149/51 (83) 99 100.1 Height (Feet): 5 Height (Inches): 7.00 Weight (Pounds): 132 General Appearance: other - sob noted, more alert HEENT: normocephalic, atraumatic, anicteric, mucous membranes moist Respiratory/Chest: crackles/rales, rhonchi - bilaterally Cardiovascular: normal rate, regular rhythm, no gallop/murmur, no JVD Abdomen: normal bowel sounds, soft, non tender, no organomegaly, non distended Genitourinary: other - + mishra - urine cloudy Extremities: no cyanosis Skin: no rash Neurologic/Psychiatric: telepathist II-XII grossly normal, alert, responsive, other - generalized weakness but more alert Lymphatic: no neck adenopathy Musculoskeletal: no effusion Objective 03/24 - chest x-ray - FINDINGS/IMPRESSION: Patchy opacity at the left base may be slightly increased. No significant change in patchy opacity at the right base. Patient is rotated to the right. 03/26 - chest x-ray - Findings: Interstitial opacities and prominent vascularity demonstrated with some airspace opacification at the left lung base. Heart size remains relatively normal. Small bilateral pleural effusions are suspected. Bones are osteopenic. IMPRESSION: mild CHF suspected. Microbiology Date/Time Source Procedure Growth Status 03/25/18 19:25 Blood Blood Culture - Preliminary NO GROWTH AFTER 24 HOURS Resulted 03/24/18 04:00 Sputum Expectorated Gram Stain - Final Resulted 03/24/18 04:00 Sputum Culture - Preliminary Enterobacter Cloacae Complex Escherichia Coli Staphylococcus Aureus Resulted 03/21/18 21:35 Urine,Clean Catch Urine Culture - Final Enterobacter Cloacae Complex Complete 03/23/18 15:00 Rectum VRE Culture - Final Enterococcus Faecium - Vre Complete Microbiology Date/Time Source Procedure Growth Status 03/25/18 19:25 Blood Blood Culture - Preliminary NO GROWTH AFTER 24 HOURS Resulted 03/25/18 19:20 Blood Blood Culture - Preliminary NO GROWTH AFTER 24 HOURS Resulted Labs Test 03/25/18 04:00 03/25/18 04:03 03/25/18 06:00 03/25/18 13:50 Stool Occult Blood Positive (NEGATIVE) Random Vancomycin Level 16.4 ug/mL Sodium Level 157 MMOL/L (136-145) Potassium Level 4.3 MMOL/L (3.5-5.1) Chloride Level 122 MMOL/L (98-107) Carbon Dioxide Level 23 MMOL/L (21-32) Anion Gap 12 mmol/L (5-15) Blood Urea Nitrogen 73 mg/dL (7-18) Creatinine 1.2 MG/DL (0.55-1.30) Estimat Glomerular Filtration Rate mL/min (>60) Glucose Level 278 MG/DL (74-106) Calcium Level 8.9 MG/DL (8.5-10.1) White Blood Count 18.0 K/UL (4.8-10.8) Red Blood Count 2.38 M/UL (4.70-6.10) Hemoglobin 7.6 G/DL (14.2-18.0) Hematocrit 24.3 % (42.0-52.0) Mean Corpuscular Volume 102 FL (80-99) Mean Corpuscular Hemoglobin 32.0 PG (27.0-31.0) Mean Corpuscular Hemoglobin Concent 31.3 G/DL (32.0-36.0) Red Cell Distribution Width 20.4 % (11.6-14.8) Platelet Count 134 K/UL (150-450) Mean Platelet Volume 10.5 FL (6.5-10.1) Neutrophils (%) (Auto) % (45.0-75.0) Lymphocytes (%) (Auto) % (20.0-45.0) Monocytes (%) (Auto) % (1.0-10.0) Eosinophils (%) (Auto) % (0.0-3.0) Basophils (%) (Auto) % (0.0-2.0) Differential Total Cells Counted 100 Neutrophils % (Manual) 81 % (45-75) Lymphocytes % (Manual) 7 % (20-45) Monocytes % (Manual) 6 % (1-10) Eosinophils % (Manual) 0 % (0-3) Basophils % (Manual) 0 % (0-2) Band Neutrophils 6 % (0-8) Platelet Estimate Decreased Platelet Morphology Normal Hypochromasia 1+ Anisocytosis 1+ Macrocytosis Test 03/26/18 08:20 03/26/18 14:30 03/27/18 06:00 White Blood Count 15.2 K/UL (4.8-10.8) Red Blood Count 2.30 M/UL (4.70-6.10) Hemoglobin 7.3 G/DL (14.2-18.0) Hematocrit 23.8 % (42.0-52.0) Mean Corpuscular Volume 104 FL (80-99) Mean Corpuscular Hemoglobin 31.8 PG (27.0-31.0) Mean Corpuscular Hemoglobin Concent 30.8 G/DL (32.0-36.0) Red Cell Distribution Width 19.6 % (11.6-14.8) Platelet Count 119 K/UL (150-450) Mean Platelet Volume 10.5 FL (6.5-10.1) Neutrophils (%) (Auto) % (45.0-75.0) Lymphocytes (%) (Auto) % (20.0-45.0) Monocytes (%) (Auto) % (1.0-10.0) Eosinophils (%) (Auto) % (0.0-3.0) Basophils (%) (Auto) % (0.0-2.0) Differential Total Cells Counted 100 Neutrophils % (Manual) 80 % (45-75) Lymphocytes % (Manual) 12 % (20-45) Monocytes % (Manual) 4 % (1-10) Eosinophils % (Manual) 2 % (0-3) Basophils % (Manual) 0 % (0-2) Band Neutrophils 2 % (0-8) Platelet Estimate Decreased Platelet Morphology Normal Hypochromasia 2+ Anisocytosis 2+ Macrocytosis 1+ Stomatocytes 1+ Sodium Level 156 MMOL/L (136-145) 155 MMOL/L (136-145) Potassium Level 3.8 MMOL/L (3.5-5.1) 3.8 MMOL/L (3.5-5.1) Chloride Level 121 MMOL/L (98-107) 120 MMOL/L (98-107) Carbon Dioxide Level 23 MMOL/L (21-32) 23 MMOL/L (21-32) Blood Urea Nitrogen 56 mg/dL (7-18) 48 mg/dL (7-18) Creatinine 1.1 MG/DL (0.55-1.30) 1.0 MG/DL (0.55-1.30) Estimat Glomerular Filtration Rate mL/min (>60) mL/min (>60) Glucose Level 275 MG/DL (74-106) 239 MG/DL (74-106) Calcium Level 8.6 MG/DL (8.5-10.1) 8.9 MG/DL (8.5-10.1) Stool Occult Blood Positive (NEGATIVE) Anion Gap 12 mmol/L (5-15) Laboratory Tests Test 03/27/18 06:00 Sodium Level 155 MMOL/L (136-145) H Potassium Level 3.8 MMOL/L (3.5-5.1) Chloride Level 120 MMOL/L (98-107) H Carbon Dioxide Level 23 MMOL/L (21-32) Anion Gap 12 mmol/L (5-15) Blood Urea Nitrogen 48 mg/dL (7-18) H Creatinine 1.0 MG/DL (0.55-1.30) Estimat Glomerular Filtration Rate mL/min (>60) Glucose Level 239 MG/DL (74-106) H Calcium Level 8.9 MG/DL (8.5-10.1) Current Medications Medications (Trade) Dose Ordered Sig/Mani Route PRN Reason Start Time Stop Time Status Last Admin Dose Admin Acetaminophen (Tylenol) 650 mg Q4H PRN GT Mild Pain/Temp > 100.5 03/22/18 12:05 04/21/18 12:04 03/27/18 13:56 Atorvastatin Calcium (Lipitor) 10 mg BEDTIME GT 03/23/18 21:00 04/22/18 20:59 03/26/18 21:43 Chlorhexidine Gluconate (Elizabeth-Hex 2%) 1 applic DAILY@2000 TOPIC 03/22/18 20:00 04/21/18 19:59 03/26/18 21:43 Dextrose/ Electrolytes 1,000 ml @ 100 mls/hr Q10H IV 03/27/18 17:00 04/26/18 16:59 Epoetin Dat (Procrit (for non ESRD use)) 5,000 units SUN-SUN-SUN SUBQ 03/22/18 21:00 04/21/18 20:59 03/25/18 21:33 Guaifenesin (Robitussin) 100 mg TIDPRN PRN ORAL For Cough 03/23/18 20:00 04/22/18 19:59 03/25/18 11:36 Heparin Sodium (Porcine) (Heparin 5000 units/ml) 5,000 units EVERY 12 HOURS SUBQ 03/22/18 09:00 04/21/18 08:59 03/25/18 20:17 Insulin Detemir (Levemir) 25 units Q24H SUBQ 03/28/18 15:00 04/25/18 14:59 Meropenem 1 gm/ Sodium Chloride 55 ml @ 110 mls/hr Q12HR IVPB 03/26/18 21:00 04/01/18 20:59 03/27/18 08:55 Metoprolol Tartrate (Lopressor) 50 mg Q12HR ORAL 03/28/18 09:00 04/27/18 08:59 Vancomycin HCl (Vanco rx to dose) 1 ea DAILY PRN MISC Per rx protocol 03/22/18 04:15 04/21/18 04:14 Vancomycin/Sodium Chloride 250 ml @ 166.667 mls/hr Q24H IVPB 03/25/18 11:00 03/30/18 10:59 03/27/18 10:48 Arleth Aranda MD Mar 27, 2018 17:03
[2018-03-27] MEDS: D5W w/KCl 20mEq 1,000 ML IV SCH (17:34)
[2018-03-27 20:00] VITALS: BP 154/56
[2018-03-27] MEDS: Dyna-Hex 2% Top Sol 2oz TOPIC SCH (20:18)
[2018-03-27] MEDS: Epogen (for non ESRD use) SUBQ SCH (20:56)
--- NOTE | 2018-03-27 21:28 | Cardiology Progress Note ---
Assessment/Plan Assessment/Plan sepsis pneumonia severe hypernatremia tachycardia BP elevation? cause, started on metoprolol remains septic and hypernatremic Subjective Subjective The patient is non verbal, confused Objective Last 24 Hour Vital Signs Date Time Temp Pulse Resp B/P (MAP) Pulse Ox O2 Delivery O2 Flow Rate FiO2 03/27/18 19:58 95 Venturi Mask 10.0 45 18 19:58 Venturi Mask 10.0 45 03/27/18 19:58 96 20 Venturi Mask 10.0 45 03/27/18 16:12 89 03/27/18 15:44 99.4 90 22 132/71 (91) 94 99.4 03/27/18 14:26 97.2 03/27/18 13:56 99.0 03/27/18 13:55 118 138/81 03/27/18 12:00 127 03/27/18 11:41 99.0 130 24 191/89 (123) 96 99.0 03/27/18 11:01 115 24 96 Venturi Mask 10.0 45 03/27/18 10:50 111 26 97 Venturi Mask 10.0 45 03/27/18 09:00 Venturi Mask 03/27/18 08:08 98.2 96 22 113/56 (75) 97 98.2 03/27/18 08:00 101 03/27/18 07:36 104 24 Venturi Mask 10.0 45 03/27/18 07:36 97 Venturi Mask 10.0 45 03/27/18 07:36 Venturi Mask 10.0 45 03/27/18 04:00 97.9 104 20 130/74 (92) 97 97.9 03/27/18 04:00 105 03/27/18 00:00 101 03/27/18 00:00 98.2 106 20 130/53 (78) 97 98.2 General Appearance: moderate distress, lethargic, other EENT: PERRL/EOMI Neck: no JVD Rhythm: ST Cardiovascular: tachycardia Respiratory/Chest: accessory muscle use, crackles/rales Abdomen: soft Extremities: other - contracted Neurologic: unresponsiveness Intake and Output 03/26/18 03/27/18 19:00 07:00 Intake Total 1105.000 ml Output Total 550 ml Balance 555.000 ml Free Water 200 ml IV Total 725.000 ml Tube Feeding 180 ml Output Urine Total 550 ml # Voids 2 # Bowel Movements 1 1 Laboratory Tests Test 03/27/18 06:00 Sodium Level 155 MMOL/L (136-145) H Potassium Level 3.8 MMOL/L (3.5-5.1) Chloride Level 120 MMOL/L (98-107) H Carbon Dioxide Level 23 MMOL/L (21-32) Anion Gap 12 mmol/L (5-15) Blood Urea Nitrogen 48 mg/dL (-18) H Creatinine 1.0 MG/DL (0.55-1.30) Estimat Glomerular Filtration Rate mL/min (>60) Glucose Level 239 MG/DL (74-106) H Calcium Level 8.9 MG/DL (8.5-10.1) Microbiology Date/Time Source Procedure Growth Status 03/25/18 19:25 Blood Blood Culture - Preliminary NO GROWTH AFTER 24 HOURS Resulted 03/25/18 19:20 Blood Blood Culture - Preliminary NO GROWTH AFTER 24 HOURS Resulted Sho Nogueira MD Mar 27, 2018 21:28
[2018-03-28] VITALS: BP 113/67
[2018-03-28] MEDS: D5W w/KCl 20mEq 1,000 ML IV SCH (03:00)
[2018-03-28 04:00] VITALS: BP 153/55
[2018-03-28] MEDS ORDERED: Sterile Water Irrig 1000ml IRRIG ONE (06:39)
[2018-03-28] MEDS ORDERED: NS 275ml ONE (06:39)
[2018-03-28] MEDS ORDERED: 1/2 NS 1000ml IV ONE (06:39)
[2018-03-28] MEDS ORDERED: Metoprolol Tartrate 50mg tab ORAL SCH (09:00)
[2018-03-28] MEDS ORDERED: Levemir Flexpen SUBQ SCH (15:00)
--- NOTE | 2018-03-29 12:29 | Discharge Summary ---
Discharge Summary Discharge Summary _ DATE OF ADMISSION: 03/21/2018 DATE OF DISCHARGE: 03/28/2018 BRIEF SUMMARY: Patient is an unfortunate 87-year-old male, from half-way, patient was admitted from another hospital due to septic complications and mainly aspiration pneumonia and was transferred to a half-way. Patient condition declined significantly and per family's request, care was transferred over. At the half-way, he was noted to have elevated white count. He was then taken to [facility] for further evaluation. He was DO NOT RESUSCITATE. On arrival to ED, blood pressure was 87/39. He was given IV bolus. Blood work showed leukocytosis WBC of 25. He was anemic with hemoglobin level of 8.9, hematocrit was 27.5. Lactic acid was elevated to 2.9. Troponin was elevated. Urinalysis with 2+ leukocyte esterase, negative nitrite, 2-4 RBC, 2-4 WBC. Chest x-ray showed bilateral lower lung opacities. He was pancultured and was started empirically on vancomycin, Zosyn and levofloxacin. He was admitted for septicemia, most likely secondary to bilateral lower lobe pneumonia. He was given gentle IV fluid hydration. Cardiac evaluation was done. Electrocardiogram showed sinus rhythm with left axis deviation, no significant ST to T wave abnormalities. Echocardiogram was technically difficult study, showed ejection fraction of 70-75%, with moderate left ventricular hypertrophy, mild valvular regurgitation. Patient not a candidate for any cardiac invasive/aggressive procedure. He was given atorvastatin, unable to take aspirin due to allergies. Elevation in troponin was possibly demand- related and values down trended. He was febrile and has sepsis syndrome. He was seen by infectious disease specialist and was given meropenem, Levaquin and vancomycin pending culture results. Patient was hypernatremic and was given D5 water with KCl. He had acute kidney injury that eventually improved. Urine culture showed growth of Enterobacter. Blood culture with Staphylococcus. Sputum culture showed growth of Enterobacter, Escherichia coli and MRSA. He was continued on meropenem and vancomycin, levofloxacin was discontinued. He had an episode of respiratory distress and was placed on Venturi mask. In the morning of 03/28/2018, he was noted to be bradycardic and bradypneic. O2 saturation 71%, oral suctioning was done. Patient is DO NOT RESUSCITATE and DO NOT INTUBATE. He eventually . FINAL DIAGNOSES: Sepsis Pneumonia Acute pyelonephritis NSTEMI due to high cardiac demand Hypernatremia CHF Rapid A. fib Acute kidney injury DISPOSITION: Patient . I have been assigned to dictate discharge summary on this account, and I was not involved in the patient's management. Abigail Coppola NP Mar 29, 2018 12:29
== END 2018-03-28 06:40 | disposition expired | DRG 871 ==
LOC: EDBD 20:20 → EMR 21:15 → EDBEDREQSVC 22:04 → 2E 22:24 → EDBEDREQ 23:21
DX: A41.9 Sepsis, unspecified organism (principal); J18.9 Pneumonia, unspecified organism; I21.A1 Myocardial infarction type 2; N17.9 Acute kidney failure, unspecified; N10 Acute pyelonephritis; E87.0 Hyperosmolality and hypernatremia; F09 Unspecified mental disorder due to known physiological condition; Z66 Do not resuscitate; Z93.1 Gastrostomy status; R13.10 Dysphagia, unspecified; E11.9 Type 2 diabetes mellitus without complications; L89.152 Pressure ulcer of sacral region, stage 2; K21.9 Gastro-esophageal reflux disease without esophagitis; E78.5 Hyperlipidemia, unspecified; F03.90 Unspecified dementia, unspecified severity, without behavioral disturbance, psychotic disturbance, mood disturbance, and anxiety; I25.10 Atherosclerotic heart disease of native coronary artery without angina pectoris; D69.6 Thrombocytopenia, unspecified; D64.9 Anemia, unspecified; B96.89 Other specified bacterial agents as the cause of diseases classified elsewhere; I48.91 Unspecified atrial fibrillation; I11.0 Hypertensive heart disease with heart failure; I50.9 Heart failure, unspecified; Z79.4 Long term (current) use of insulin
CPT/HCPCS: 36415; 36600; 71045; 80048; 80053; 80202; 81003; 82270; 82550; 82553; 82803; 82962; 83605; 83735; 84100; 84484; 85007; 85025; 85610; 85730; 87040; 87070; 87081; 87086; 87181; 87205; 93005; 93306; 94640; 94664; 94760; 99291; J7620; S5561